=== PATIENT | male | born 1950 | race Caucasian/White ===

== ENCOUNTER 2016-11-29 01:20 | Inpatient (IN) | payer MEDICARE, OTHER ==
[~2016-11-29] VITALS: Ht 180.3 cm; Wt 75.9 kg
[2016-11-29 02:02] LABS: BASOPHILS 0.6 % (0-2); EOSINOPHILS 2.7 % (0-7); HEMATOCRIT 40.7 % (42.0-54.0); HEMOGLOBIN 14.5 g/dL (13.5-17.5); IMMATURE GRANULOCYTES 0.2 % (0-5); LYMPHOCYTES 24.4 % (15-50); MCH 36.2 pg (26.0-34.0); MCHC 35.6 g/dL (31.0-37.0); MCV 101.5 fL (80.0-100.0); MEAN PLATELET VOLUME 10.6 fL (7.4-10.4); MONOCYTES 9.5 % (2-11); NEUTROPHILS 62.6 % (40-80); RBC 4.01 10x6/uL (4.20-6.10); RDW 15.1 % (11.5-14.5); WBC 6.2 10x3/uL (4.8-10.8)
[2016-11-29 02:03] LABS: PLATELET COUNT 113 10x3/uL (130-400)
[2016-11-29 02:13] LABS: ALBUMIN 3.1 g/dL (3.4-5.0); ANION GAP 12.7 mmol/L (8-16); BILIRUBIN - TOTAL 2.52 mg/dL (0.2-1.3); CALCIUM 9.7 mg/dL (8.5-10.1); CARBON DIOXIDE 24.3 mmol/L (21.0-32.0); CREATININE - SERUM 1.4 mg/dL (0.6-1.3)
--- NOTE | 2016-11-29 07:35 | NUR ---
ASSESSMENT DONE. DENIES NEEDS.
[2016-11-29 08:00] VITALS: BP 156/90
[2016-11-29 12:00] VITALS: BP 155/102
[2016-11-29 13:28] VITALS: Ht 180.3 cm; Wt 75.9 kg
[2016-11-29 16:11] VITALS: BP 173/104
[2016-11-29 19:00] VITALS: BP 174/103
--- NOTE | 2016-11-29 21:00 | NUR ---
SPOUSE HERE AT BEDSIDE. MEDICATION RECONCILIATION UPDATED.
[2016-11-29] MEDS ORDERED: ENULOSE10 G/15 ML PO (21:48)
[2016-11-29] MEDS ORDERED: KLONOPIN0.5 MG PO (21:49)
[2016-11-29] MEDS ORDERED: PERCOCET 10/3251 TA1 PO (21:49)
[2016-11-29] MEDS ORDERED: ED-SPAZ0.125 MG PO (21:50)
[2016-11-29] MEDS ORDERED: LEVOTHYROXINE50 MCG PO (21:50)
[2016-11-30] VITALS: BP 158/95
--- NOTE | 2016-11-30 00:45 | NUR ---
POTASSIUM RESULTS 3.1 - KCL 40 MEQ PO GIVEN PER PROTOCOL. WILL MONITOR.
[2016-11-30 04:00] VITALS: BP 140/90
[2016-11-30 05:48] LABS: ANION GAP 15.8 mmol/L (8-16); CALCIUM 9.2 mg/dL (8.5-10.1); CARBON DIOXIDE 20.6 mmol/L (21.0-32.0); CREATININE - SERUM 1.2 mg/dL (0.6-1.3); POTASSIUM - SERUM 3.4 mmol/L (3.5-5.1)
--- NOTE | 2016-11-30 06:18 | NUR ---
K+ RESULTS 3.4. KCL 40 MEQ PO GIVEN PER ORDER. WILL ORDER A FOLLOW UP K+ LEVAL FOR 10:30 AM.
--- NOTE | 2016-11-30 07:06 | NUR ---
AM ROUNDS- PT IN BED, CONFUSED TO TIME AND SITUATION. RESP EVEN AND UNLABORED. RT HAND IV SL, NO S/S OF INFILTRATION. BED LOW AND WHEELS LOCKED, BEDSIDE REAILS X2. CALL LIGHT IN REACH, INSTRUCTED PT NOT TO GET OUT OF BED WITHOUT HELP. BED ALARM ON, NAD NOTED, WILL CONTINUE TO MONITOR.
--- NOTE | 2016-11-30 09:08 | NUR ---
AM MEDS GIVEN PT ASKING ABOUT OTHER HOME MEDS. INFORMED PT THAT I WOULD LET THE DOCTORS KNOW SO IT CAN BE ADDRESSED. PT IN BED, DENIES ANY OTHER NEEDS AT THIS TIME. CALL LIGHT IN REACH, NAD NOTED, WILL CONTINUE TO MONITOR.
[2016-11-30 09:48] VITALS: BP 191/93
[2016-11-30 11:58] LABS: APPEARANCE CLEAR (CLEAR); BACTERIA FEW /hpf (NONE SEEN); BILIRUBIN NEGATIVE (NEGATIVE); COLOR YELLOW (YELLOW); EPITHELIAL CELLS OCC /hpf (0-5); GLUCOSE NEGATIVE (NEGATIVE); KETONE NEGATIVE (NEGATIVE); LEUKOCYTE ESTERASE TRACE (NEGATIVE); NITRITE NEGATIVE (NEGATIVE); PROTEIN NEGATIVE (NEGATIVE); RED CELLS - URINE 0-5 /hpf (0-5); UROBILINOGEN NORMAL (NORMAL); WHITE CELLS - URINE 0-5 /hpf (0-5)
[2016-11-30 12:29] VITALS: BP 184/86
--- NOTE | 2016-11-30 14:15 | NUR ---
NOTIFIED DR. LINDSAY AND LEEANNA PANCHAL ABOUT AMMONIA LEVEL OF 55. LEEANNA PANCHAL STATED TO START PT ON HOME DOSE LACTULOSE, AND TO GIVE 30ML OF LACTULOSE RIGHT NOW ONE TIME DOSE.
[2016-11-30 15:11] VITALS: BP 174/78
--- NOTE | 2016-11-30 16:53 | NUR ---
PT UP AD SHEY TO BATHROOM. RESP EVEN AND NONLABORED. PT DENIES ANY NEEEDS AT THIS TIME. CALL LIGHT IN REACH, NAD NOTED, WILL CONTIUE TO MONITOR.
--- NOTE | 2016-11-30 18:05 | NUR ---
ADMINITERED PERCOCET FOR PAIN LEVEL OF 8/10. PT IN BED, DENIES ANY OTHER NEEDS AT THIS TIME. CALL LIGHT IN REACH, NAD NOTED, WILL CONTINUE TO MONITOR.
[2016-12-01] VITALS: BP 189/77
--- NOTE | 2016-12-01 07:17 | NUR ---
AM ROUNDS- PT IN BED, ASKED FOR A MARTINEZ QAWALANGIN SODA. WILL PROVIDED PT WITH REQEUST. RESP EVEN AND UNLABORED. LT HAND IV SL. BED LOW AND WHEELS LOCKED, BEDSIDE RAILS X2. CALL LIGHT IN REACH, NAD NOTED, WILL CONTINUE TO MONITOR.
[2016-12-01 08:00] VITALS: BP 178/91
--- NOTE | 2016-12-01 09:23 | NUR ---
PT C/O PAIN TO ABD, LEVEL 8/10, ADMINISTERD PERCOCET FOR PAIN. PT DENIES ANY OTHER NEEDS AT THIS TIME. CALL LIGHT IN REACH, NAD NOTED, WILL CONTINUE TO MONITOR.
--- NOTE | 2016-12-01 10:50 | NUR ---
PT GOT IN THE SHOWER. COMPLETE LINEN CHANGE PROVIDED AT THIS TIME. HELPED PT BACK TO BED AFTER SHOWER. PROVIDED PT WITH A LEMON KOTLIK SODA. PT DENIES ANY NEEDS AT THIS TIME. CALL LIGHT IN REACH, NAD NOTED, WILL CONTINUE TO MONITOR.
[2016-12-01 12:00] VITALS: BP 144/93
[2016-12-01 13:30] LABS: BASOPHILS 0.2 % (0-2); EOSINOPHILS 0.2 % (0-7); IMMATURE GRANULOCYTES 0.3 % (0-5); LYMPHOCYTES 14.5 % (15-50); MCH 36.6 pg (26.0-34.0); MCHC 35.6 g/dL (31.0-37.0); MEAN PLATELET VOLUME 11.3 fL (7.4-10.4); MONOCYTES 9.5 % (2-11); NEUTROPHILS 75.3 % (40-80); PLATELET COUNT 112 10x3/uL (130-400); RBC 4.37 10x6/uL (4.20-6.10); RDW 15.2 % (11.5-14.5); WBC 10.3 10x3/uL (4.8-10.8)
[2016-12-01 13:45] LABS: BILIRUBIN - TOTAL 2.63 mg/dL (0.2-1.3); CALCIUM 9.4 mg/dL (8.5-10.1); CREATININE - SERUM 1.5 mg/dL (0.6-1.3); PROTEIN - SERUM 7.3 g/dL (6.4-8.2)
--- NOTE | 2016-12-01 15:05 | NUR ---
ADMINISTERED LACTULOSE ORDERED. PT IN BED, DENIES ANY NEEDS AT THIS TIME. CALL LIGHT IN REACH, NAD NOTED, WILL CONTINUE TO MONITOR.
--- NOTE | 2016-12-01 15:52 | NUR ---
40MEQ OF K GIVEN FOR LOW K OF 3.0 WILL PUT ORDER FOR K BLOOD DRAW AT 1999. PT DENIES ANY NEEDS AT THIS TIME. CALL LIGHT IN REACH, NAD NOTED, WILL CONTINUE TO MONITOR.
[2016-12-01 16:00] VITALS: BP 150/84
--- NOTE | 2016-12-01 18:10 | NUR ---
PT IN BED, DENIES ANY NEEDS AT THIS TIME. PT STATED THAT HE THREW UP THREE TIMES TODAY, PT DID NOT NOTIFY ME WHEN HE WAS THROWING UP. INFORMED PT THAT IF HE THROWS UP AGAIN TO NOTIFY THE NURSE. CALL LIGHT IN REACH, NAD NOTED, WILL CONTINUE TO MONITOR.
--- NOTE | 2016-12-01 18:59 | NUR ---
ORDERS RECEIVED FROM DR. PARKS FOR WINN PLACEMENT, NG TUBE PLACEMENT, AND 1000CC BOLUS OF NS. NG TUBE TO INTERMINENT CONT SUCTION. DR. PARKS WILL BE HERE TO SEE PT LATER [place].
--- NOTE | 2016-12-01 19:00 | NUR ---
RECEIVED REPORT AND ASSUMED PT CARE FROM DAY SHIFT NURSE @ THIS TIME.
[2016-12-01 20:00] VITALS: BP 168/93
--- NOTE | 2016-12-01 20:52 | NUR ---
14 FR SALEN SUMP NGT PLACED TO RIGHT NARE. VERIFIED BY AUSCULTATION AND ASPIRATION OF LIGHT BROWN STOMACH CONTENTS. XRAY ORDERED TO VERIFY PLACEMENT OF NGT TUBE. 16 FR WINN CATH PLACED, 300 CC CLEAR TRINIDAD URINE RETURNED. PT TOLERATED FAIR. NS 1 L BOLUS ALSO STARTED TO LEFT AC IV SITE ORDERED. WILL MONITOR.
[2016-12-02] VITALS: BP 156/90
--- NOTE | 2016-12-02 | NUR ---
NO CHANGES IN ASSESSMENT, NGT TO RT NARE CONTINUES TO BE CONNECTED TO LIWS, MINIMAL AMOUNT BROWN DRAINAGE NOTED. PT STATES HIS STOMACH IS FEELING BETTER. LEMON GLYCERIN SWABS PLACED AT THE THE BEDSIDE. ORAL CARE PROVIDED. PLACEMENT VERIFIED AGAIN BY AUSCULTATION. WINN CONT TO PUT OUT TRINIDAD CLEAR URINE. NO OTHER NEEDS VOICED. WILL CONT TO MONITOR.
[2016-12-02 04:00] VITALS: BP 158/80
[2016-12-02 05:03] LABS: BASOPHILS 0.2 % (0-2); EOSINOPHILS 0.7 % (0-7); HEMATOCRIT 44.1 % (42.0-54.0); HEMOGLOBIN 15.5 g/dL (13.5-17.5); IMMATURE GRANULOCYTES 0.3 % (0-5); LYMPHOCYTES 20.1 % (15-50); MCHC 35.1 g/dL (31.0-37.0); MCV 102.3 fL (80.0-100.0); MEAN PLATELET VOLUME 11.3 fL (7.4-10.4); MONOCYTES 10.2 % (2-11); NEUTROPHILS 68.5 % (40-80); PLATELET COUNT 132 10x3/uL (130-400); RBC 4.31 10x6/uL (4.20-6.10); RDW 15.2 % (11.5-14.5); WBC 12.4 10x3/uL (4.8-10.8)
--- NOTE | 2016-12-02 05:06 | NUR ---
PT PULLS NGT OUT WHILE ASLEEP. 14 FR SALEM SUMP NGT TO RIGHT NARE PLACED. VERIFIED BY AUSCULTATION AND ASPIRATION. CONNECTED TO LIWS. PT TOLERATED FAIR. DRAINAGE NOW GREEN. PT STATES ABD HURTING AND FEELING BETTER ONCE TUBE BACK IN PLACE.
[2016-12-02 05:22] LABS: ALBUMIN 2.9 g/dL (3.4-5.0); ANION GAP 14.6 mmol/L (8-16); BILIRUBIN - DIRECT 0.75 mg/dL (0.00-0.30); BILIRUBIN - TOTAL 3.03 mg/dL (0.2-1.3); CALCIUM 8.7 mg/dL (8.5-10.1); CARBON DIOXIDE 21.7 mmol/L (21.0-32.0); CREATININE - SERUM 1.2 mg/dL (0.6-1.3); POTASSIUM - SERUM 3.3 mmol/L (3.5-5.1); PROTEIN - SERUM 7.1 g/dL (6.4-8.2)
--- NOTE | 2016-12-02 07:30 | NUR ---
RECEIVED PT IN BED EYES CLOSED RESP UNLABORED NG PATENT TO LOW WALL INTERMITENT SUCTION NAD NOTED
[2016-12-02 08:00] VITALS: BP 154/87
--- NOTE | 2016-12-02 12:57 | NUR ---
Nutrition Follow Up: Chart reviewed. Pt is now NPO with NGT to LIS. No new wt to assess. +BM 12/01/16. Labs and meds reviewed. Rec advancing diet when medically feasible. RD following.
--- NOTE | 2016-12-02 13:45 | CN ---
PATIENT NAME:REEMA ADAM MEDICAL RECORD: [id number] : 46 LOCATION:D. D.2115 ADMIT DATE: 11/30/16 ACCOUNT: [id number] CONSULTING PHYSICIAN: KARINE HEWITT MD REFERRING PHYSICIAN: RENA LINDSAY MD DATE OF CONSULTATION: 11/30/2016 IDENTIFYING DATA: The patient is 66 years old and admitted to the hospital secondary to an elevated ammonia. CHIEF COMPLAINT: Confusion. HISTORY OF PRESENT ILLNESS: The patient was seen today. He was not evaluated. He and his say they do not need a psychiatrist. They furthermore say they are not happy with the care here that he is not getting the medicines that he needs. They want to be discharged. They say that there is no need for me to see him. They did not know a psychiatrist was coming to see him and they are unhappy. ASSESSMENT: Probable delirium secondary to elevated ammonia. PLAN: Please call if I can be of further assistance. TRANSINT:[id number] Voice Confirmation ID: [id number] DOCUMENT ID: [id number] KARINE HEWITT MD at 1345 CC: [id number] DICTATION DATE: 11/30/16 1324 SAWMILL SUPERVISOR: 11/30/16 2036 ADM IN [facility] [address] [place] [address]
[2016-12-02 16:00] VITALS: BP 177/94
[2016-12-02 19:00] VITALS: BP 168/93
--- NOTE | 2016-12-02 19:30 | NUR ---
RESUMED CARE OF PT, LYING IN BED RESPIRATIONS EVEN AND UNLABORED ON ROOM AIR. NG TUBE TO RIGHT NARE LIS EMPTYING YELLOW GREEN BILE. LEFT AC INFUSING NS @ KVO. NO NEEDS VOICED AT THIS TIME, CALL LIGHT IN REACH. WILL CONTINUE TO MONITOR. SEE NURSE ASSESSMENT.
--- NOTE | 2016-12-02 19:47 | NUR ---
GONE FOR CT
--- NOTE | 2016-12-02 20:15 | NUR ---
NG TUBE REMOVED BY PT, REINSERTED TO RIGHT NARE. PLACEMENT CONFIRMED BY AUSCULTATION. HOOKED TO LIS. NO BILE REMOVING AT THIS TIME. WILL CONTINUE TO MONITOR. CALL LIGHT IN REACH.
[2016-12-03] VITALS: BP 163/86
--- NOTE | 2016-12-03 02:29 | NUR ---
LYING IN BED, CALL LIGHT IN REACH. WILL CONTINUE WITH PLAN OF CARE
[2016-12-03 04:00] VITALS: BP 130/76
[2016-12-03 05:48] LABS: BASOPHILS 0.6 % (0-2); EOSINOPHILS 2.1 % (0-7); HEMATOCRIT 43.9 % (42.0-54.0); HEMOGLOBIN 15.3 g/dL (13.5-17.5); IMMATURE GRANULOCYTES 0.2 % (0-5); LYMPHOCYTES 21.8 % (15-50); MCH 36.1 pg (26.0-34.0); MCHC 34.9 g/dL (31.0-37.0); MCV 103.5 fL (80.0-100.0); MEAN PLATELET VOLUME 11.9 fL (7.4-10.4); MONOCYTES 10.8 % (2-11); NEUTROPHILS 64.5 % (40-80); PLATELET COUNT 113 10x3/uL (130-400); RBC 4.24 10x6/uL (4.20-6.10); RDW 15.2 % (11.5-14.5)
[2016-12-03 05:59] LABS: WBC 8.9 10x3/uL (4.8-10.8)
[2016-12-03 06:13] LABS: ALBUMIN 2.8 g/dL (3.4-5.0); ANION GAP 15.3 mmol/L (8-16); BILIRUBIN - TOTAL 3.1 mg/dL (0.2-1.3); CALCIUM 8.7 mg/dL (8.5-10.1); CARBON DIOXIDE 22.4 mmol/L (21.0-32.0); CREATININE - SERUM 1.2 mg/dL (0.6-1.3); POTASSIUM - SERUM 3.7 mmol/L (3.5-5.1); PROTEIN - SERUM 6.9 g/dL (6.4-8.2)
--- NOTE | 2016-12-03 07:15 | NUR ---
RECEIVED PT IN BED EYES CLOSED RESP UNLABORED NG TUBE PATENT TO RT NARE TO LOW INTERMITENT SUCTION SCANT GREE DRAINAGE NOTED NAD NOTED
[2016-12-03 08:25] VITALS: BP 151/87
[2016-12-03 12:12] VITALS: BP 154/82
[2016-12-03 16:24] VITALS: BP 167/100
[2016-12-03 20:00] VITALS: BP 135/84
--- NOTE | 2016-12-03 21:00 | NUR ---
PT RESTING IN BED. ALERT/ORIENTED. PIV TO LEFT A/C. BEDTIME MEDS GIVEN. LOVENOX ADMINISTERED. WINN PATENT TO BEDSIDE DRAIN BAG. PT REQUESTED PAIN MEDS FOR ABDOMINAL PAIN 10/24. MEDICATED WITH DILAUDID 1MG SIVP. CALL LIGHT IN REACH. CPOC.
--- NOTE | 2016-12-03 21:31 | NUR ---
DR NORMAN ON UNIT SEEING PATIENT.
[2016-12-04] VITALS: BP 131/74
[2016-12-04 04:00] VITALS: BP 138/79
[2016-12-04 05:52] LABS: BASOPHILS 0.4 % (0-2); HEMATOCRIT 43.7 % (42.0-54.0); HEMOGLOBIN 15.5 g/dL (13.5-17.5); IMMATURE GRANULOCYTES 0.3 % (0-5); LYMPHOCYTES 23.3 % (15-50); MCH 36.2 pg (26.0-34.0); MCHC 35.5 g/dL (31.0-37.0); MCV 102.1 fL (80.0-100.0); MEAN PLATELET VOLUME 12.2 fL (7.4-10.4); MONOCYTES 11.2 % (2-11); NEUTROPHILS 60.8 % (40-80); PLATELET COUNT 123 10x3/uL (130-400); RBC 4.28 10x6/uL (4.20-6.10); WBC 9.5 10x3/uL (4.8-10.8)
[2016-12-04 06:15] LABS: INR 1.56 (0.85-1.17); PROTIME 18.6 SECONDS (11.6-15.0)
[2016-12-04 06:22] LABS: ALBUMIN 2.7 g/dL (3.4-5.0); ANION GAP 34.7 mmol/L (8-16); BILIRUBIN - TOTAL 2.58 mg/dL (0.2-1.3); CALCIUM 8.6 mg/dL (8.5-10.1); CREATININE - SERUM 1.2 mg/dL (0.6-1.3); POTASSIUM - SERUM 3.2 mmol/L (3.5-5.1); PROTEIN - SERUM 6.7 g/dL (6.4-8.2)
[2016-12-04 06:31] LABS: CARBON DIOXIDE 21.1 mmol/L (21.0-32.0)
[2016-12-04 09:19] VITALS: BP 155/95
--- NOTE | 2016-12-04 10:49 | NUR ---
RESTS WITH EYES CLOSED. CALL LIGHT IN REACH. WILL CONT. PLAN OF CARE.
[2016-12-04 12:09] VITALS: BP 151/90
--- NOTE | 2016-12-04 13:10 | NUR ---
WINN CATH DCD OF 450CC URINE OP AND 10CC BULB. WILL MONITOR VOID.
[2016-12-04 14:54] VITALS: BP 126/70
[2016-12-04 19:00] VITALS: BP 164/87
--- NOTE | 2016-12-04 19:17 | NUR ---
RESUMED CARE OF PT, LYING IN BED RESPIRATIONS EVEN AND UNLABORED ON ROOM AIR. LEFT AC SALINE LOCKED. ON PHONE, NO NEEDS NOTED AT THIS TIME, CALL LIGHT IN REACH. WILL CONTINUE TO MONITOR. SEE NURSE ASSESSMENT.
--- NOTE | 2016-12-04 23:52 | NUR ---
IV PULLED OUT BY PT, 20 GAUGE X 2 STICKS TO LEFT UPPER ARM. OLD IV REMOVED WITH TIP INTACT.
[2016-12-05] VITALS: BP 108/72
--- NOTE | 2016-12-05 02:42 | NUR ---
CALL LIGHT IN REACH, WILL CONTINUE WITH PLAN OF CARE.
[2016-12-05 04:00] VITALS: BP 132/78
[2016-12-05 05:23] LABS: BASOPHILS 0.2 % (0-2); EOSINOPHILS 3.5 % (0-7); HEMATOCRIT 40.9 % (42.0-54.0); HEMOGLOBIN 14.6 g/dL (13.5-17.5); IMMATURE GRANULOCYTES 0.2 % (0-5); LYMPHOCYTES 22.6 % (15-50); MCH 36.5 pg (26.0-34.0); MCHC 35.7 g/dL (31.0-37.0); MCV 102.3 fL (80.0-100.0); MEAN PLATELET VOLUME 11.9 fL (7.4-10.4); MONOCYTES 10.3 % (2-11); NEUTROPHILS 63.2 % (40-80); PLATELET COUNT 110 10x3/uL (130-400); RDW 14.9 % (11.5-14.5); WBC 9.5 10x3/uL (4.8-10.8)
[2016-12-05 05:40] LABS: ALBUMIN 2.5 g/dL (3.4-5.0); BILIRUBIN - TOTAL 2.31 mg/dL (0.2-1.3); CALCIUM 8.2 mg/dL (8.5-10.1); CARBON DIOXIDE 20.7 mmol/L (21.0-32.0); CREATININE - SERUM 1.2 mg/dL (0.6-1.3); POTASSIUM - SERUM 3.7 mmol/L (3.5-5.1); PROTEIN - SERUM 6.3 g/dL (6.4-8.2)
[2016-12-05 08:29] VITALS: BP 124/72
--- NOTE | 2016-12-05 09:29 | NUR ---
RESTS WITH EYES CLOSED. NO S/S PAIN NOTED AT THIS TIME. WILL CONT. PLAN OF CARE.
[2016-12-05 10:19] LABS: ALPHA FETOPROTEIN -(TUMOR MRK) 5.9 ng/mL (0.0-8.3)
[2016-12-05 12:41] VITALS: BP 127/85
--- NOTE | 2016-12-05 13:25 | NUR ---
Nutrition Follow Up: Pt is eating 31% meal avg on a full liquid diet. Per WET WASHER MACHINE note pt with 3-4 BM per day. Wt loss noted. Labs reviewed. Meds noted including Lactulose, Flagyl. Rec continue advancing diet as tolerated. Will provide selective menus and honor food preferences. RD following.
[2016-12-05 16:21] VITALS: BP 115/76
[2016-12-05 20:40] VITALS: BP 144/88
--- NOTE | 2016-12-06 00:08 | NUR ---
LYING IN BED WITH EYES CLOSED, CALL LIGHT IN REACH. WILL CONTINUE TO MONITOR.
[2016-12-06 00:52] VITALS: BP 148/90
[2016-12-06 04:45] VITALS: BP 120/73
[2016-12-06 05:33] LABS: BASOPHILS 0.5 % (0-2); EOSINOPHILS 6.6 % (0-7); HEMATOCRIT 40.8 % (42.0-54.0); HEMOGLOBIN 14.7 g/dL (13.5-17.5); IMMATURE GRANULOCYTES 0.2 % (0-5); LYMPHOCYTES 28.2 % (15-50); MCH 36.6 pg (26.0-34.0); MCV 101.5 fL (80.0-100.0); MEAN PLATELET VOLUME 11.1 fL (7.4-10.4); MONOCYTES 10.7 % (2-11); NEUTROPHILS 53.8 % (40-80); PLATELET COUNT 100 10x3/uL (130-400); RBC 4.02 10x6/uL (4.20-6.10); RDW 14.9 % (11.5-14.5)
[2016-12-06 05:36] LABS: INR 1.76 (0.85-1.17); PROTIME 20.5 SECONDS (11.6-15.0); WBC 6.2 10x3/uL (4.8-10.8)
[2016-12-06 05:53] LABS: ALBUMIN 2.5 g/dL (3.4-5.0); ANION GAP 13.1 mmol/L (8-16); BILIRUBIN - TOTAL 1.7 mg/dL (0.2-1.3); CALCIUM 8.3 mg/dL (8.5-10.1); CARBON DIOXIDE 19.1 mmol/L (21.0-32.0); CREATININE - SERUM 1.1 mg/dL (0.6-1.3); POTASSIUM - SERUM 3.2 mmol/L (3.5-5.1); PROTEIN - SERUM 5.9 g/dL (6.4-8.2)
--- NOTE | 2016-12-06 06:20 | NUR ---
NO CHANGES FROM PREVIOUS ASSESSMENT, POTASSIUM TREATED PER PROTOCOL.
[2016-12-06 08:00] VITALS: BP 127/78
[2016-12-06 12:00] VITALS: BP 127/80
[2016-12-06 16:00] VITALS: BP 147/79
[2016-12-06 20:00] VITALS: BP 132/85
--- NOTE | 2016-12-06 22:38 | NUR ---
PT RESTING WELL WITHOUT C/O OR DISTRESS NOTED. NO NEEDS VOICED. CALL LIGHT WITHIN REACH. WILL CONT TO MONITOR.
--- NOTE | 2016-12-07 02:04 | NUR ---
PT C/O GENERALIZED ACHINESS AND PAIN, RATES @ 6/10 ON PAIN SCALE. PERCOCET 10/325 MG 1 PO GIVEN. WILL CONT TO MONITOR.
[2016-12-07 04:00] VITALS: BP 109/73
[2016-12-07 05:50] LABS: INR 3.73 (0.85-1.17); PROTIME 37.4 SECONDS (11.6-15.0)
--- NOTE | 2016-12-07 07:30 | NUR ---
UP AMBULATING IN ROOM NAD NOTED
[2016-12-07 08:21] VITALS: BP 127/88
--- NOTE | 2016-12-07 09:49 | NUR ---
LOVENOX 80MG NOT GIVEN INR 3.73
[2016-12-07 12:15] LABS: BASOPHILS 0.7 % (0-2); EOSINOPHILS 7.3 % (0-7); HEMATOCRIT 41.2 % (42.0-54.0); HEMOGLOBIN 14.8 g/dL (13.5-17.5); IMMATURE GRANULOCYTES 0.2 % (0-5); MCH 36.5 pg (26.0-34.0); MCHC 35.9 g/dL (31.0-37.0); MCV 101.5 fL (80.0-100.0); MEAN PLATELET VOLUME 11.7 fL (7.4-10.4); MONOCYTES 11.9 % (2-11); NEUTROPHILS 48.9 % (40-80); PLATELET COUNT 107 10x3/uL (130-400); RBC 4.06 10x6/uL (4.20-6.10); WBC 5.6 10x3/uL (4.8-10.8)
[2016-12-07 12:27] LABS: ALBUMIN 2.6 g/dL (3.4-5.0); BILIRUBIN - TOTAL 1.05 mg/dL (0.2-1.3); CALCIUM 8.2 mg/dL (8.5-10.1); CARBON DIOXIDE 22.4 mmol/L (21.0-32.0); CREATININE - SERUM 1.1 mg/dL (0.6-1.3); PROTEIN - SERUM 6.7 g/dL (6.4-8.2)
[2016-12-07 12:32] LABS: ANION GAP 10.8 mmol/L (8-16); POTASSIUM - SERUM 4.2 mmol/L (3.5-5.1)
[2016-12-07] MEDS ORDERED: OMEPRAZOLE40 MG PO (12:53)
[2016-12-07] MEDS ORDERED: XIFAXAN550 MG PO (12:53)
[2016-12-07] MEDS ORDERED: FLAGYL500 MG PO (12:57)
[2016-12-07] MEDS ORDERED: COUMADIN2.5 MG PO (12:57)
--- NOTE | 2016-12-07 14:40 | NUR ---
REVIEWED DISCHARGE INSTRUCTIONS WITH PT AND BOTH STATE UNDERSTANDING COPY GIVEN DCD SALINE LOCK TO LAC WITH IV CATHETER INTACT SITE FREE OF REDNESS OR EDEMA PT DISCHARGED HOME LEFT UNIT VIA W/C IN STABLE CONDITION WITH ALL PERSONAL BELONGINGS
== END 2016-12-07 14:40 | disposition home or self-care (01) | DRG 441 ==
LOC: D.ER 01:20 → D.M2 02:49 → OBSVTIME 02:49 → D.M2 02:49 → D.SDCHOLD 16:00 → D.M2 16:03 → D.SDCHOLD 16:40 → D.M2 16:42
PROVIDERS: Emergency Medicine; Family Medicine; Internal Medicine Gastroenterology; ADMIT Family Medicine Adult Medicine
PROC: 0T9B70Z Drainage of Bladder with Drainage Device, Via Natural or Artificial Opening (ICD-10-PCS; principal; 2016-12-01)
PROC: 0D9670Z Drainage of Stomach with Drainage Device, Via Natural or Artificial Opening (ICD-10-PCS; 2016-12-01)
DX: K72.90 Hepatic failure, unspecified without coma (principal); I81 Portal vein thrombosis; K55.059 Acute (reversible) ischemia of intestine, part and extent unspecified; N17.9 Acute kidney failure, unspecified; F05 Delirium due to known physiological condition; E72.20 Disorder of urea cycle metabolism, unspecified; K76.6 Portal hypertension; I85.00 Esophageal varices without bleeding; K56.60 Unspecified intestinal obstruction; K70.30 Alcoholic cirrhosis of liver without ascites; K57.90 Diverticulosis of intestine, part unspecified, without perforation or abscess without bleeding; K80.80 Other cholelithiasis without obstruction; Z79.01 Long term (current) use of anticoagulants; I86.8 Varicose veins of other specified sites; Z87.891 Personal history of nicotine dependence

== ENCOUNTER 2016-12-09 15:14 | Emergency (ER) | payer MEDICARE, OTHER ==
[2016-11-29 13:28] VITALS: BMI 25.1
[~2016-12-09 15:14] MED LIST: COUMADIN2.5 MG PO; ED-SPAZ0.125 MG PO; ENULOSE10 G/15 ML PO; FLAGYL500 MG PO; KLONOPIN0.5 MG PO; LEVOTHYROXINE50 MCG PO; OMEPRAZOLE40 MG PO; PERCOCET 10/3251 TA1 PO; XIFAXAN550 MG PO
[2016-12-09 16:07] LABS: BASOPHILS 1.3 % (0-2); EOSINOPHILS 5.9 % (0-7); IMMATURE GRANULOCYTES 0.1 % (0-5); LYMPHOCYTES 30.3 % (15-50); MCH 36.8 pg (26.0-34.0); MCHC 34.9 g/dL (31.0-37.0); MCV 105.4 fL (80.0-100.0); MEAN PLATELET VOLUME 12.2 fL (7.4-10.4); MONOCYTES 10.6 % (2-11); NEUTROPHILS 51.8 % (40-80); PLATELET COUNT 111 10x3/uL (130-400); RBC 4.08 10x6/uL (4.20-6.10); RDW 15.3 % (11.5-14.5); WBC 7.1 10x3/uL (4.8-10.8)
[2016-12-09 16:34] LABS: ANION GAP 14.4 mmol/L (8-16); BILIRUBIN - TOTAL 1.04 mg/dL (0.2-1.3); CALCIUM 8.3 mg/dL (8.5-10.1); CARBON DIOXIDE 20.6 mmol/L (21.0-32.0); CREATININE - SERUM 1.3 mg/dL (0.6-1.3); PROTEIN - SERUM 6.8 g/dL (6.4-8.2)
[2016-12-09 16:38] LABS: APTT 56.3 SECONDS (22.8-39.4)
[2016-12-09 16:57] LABS: APPEARANCE CLEAR (CLEAR); BILIRUBIN NEGATIVE (NEGATIVE); COLOR DK YELLOW (YELLOW); GLUCOSE NEGATIVE (NEGATIVE); KETONE NEGATIVE (NEGATIVE); LEUKOCYTE ESTERASE TRACE (NEGATIVE); NITRITE NEGATIVE (NEGATIVE); PROTEIN NEGATIVE (NEGATIVE); UROBILINOGEN NORMAL (NORMAL)
[2016-12-09 16:59] LABS: BACTERIA FEW /hpf (NONE SEEN); WHITE CELLS - URINE OCC /hpf (0-5)
[2016-12-09 17:01] LABS: PROTIME 58.6 SECONDS (11.6-15.0)
[2016-12-09 17:02] LABS: INR 6.54 (0.85-1.17)
== END 2016-12-09 19:00 | disposition home or self-care (01) ==
LOC: D.ER 15:14
PROVIDERS: Emergency Medicine
DX: Z86.718 Personal history of other venous thrombosis and embolism (principal); Z79.01 Long term (current) use of anticoagulants; K74.60 Unspecified cirrhosis of liver; J84.10 Pulmonary fibrosis, unspecified

== ENCOUNTER → 2016-12-30 12:46 | Outpatient (CLI) | payer MEDICARE, OTHER ==
[2016-11-29 13:28] VITALS: BMI 25.1
== END | disposition home or self-care (01) ==
LOC: D.LABREF 12:46
DX: K74.60 Unspecified cirrhosis of liver (principal); I99.8 Other disorder of circulatory system

== ENCOUNTER → 2017-01-16 08:08 | Outpatient (CLI) | payer MEDICARE, OTHER ==
[2016-11-29 13:28] VITALS: BMI 25.1
[2017-01-16 08:40] LABS: BASOPHILS 0.7 % (0-2); EOSINOPHILS 6.5 % (0-7); HEMATOCRIT 42.3 % (42.0-54.0); HEMOGLOBIN 14.8 g/dL (13.5-17.5); IMMATURE GRANULOCYTES 0.1 % (0-5); LYMPHOCYTES 25.7 % (15-50); MCH 35.4 pg (26.0-34.0); MCV 101.2 fL (80.0-100.0); MEAN PLATELET VOLUME 10.8 fL (7.4-10.4); MONOCYTES 7.6 % (2-11); NEUTROPHILS 59.4 % (40-80); RBC 4.18 10x6/uL (4.20-6.10); RDW 13.8 % (11.5-14.5); WBC 8.3 10x3/uL (4.8-10.8)
[2017-01-16 08:48] LABS: PLATELET COUNT 136 10x3/uL (130-400)
[2017-01-16 09:04] LABS: ALBUMIN 2.8 g/dL (3.4-5.0); BILIRUBIN - DIRECT 0.56 mg/dL (0.00-0.30); BILIRUBIN - TOTAL 1.56 mg/dL (0.2-1.3); PROTEIN - SERUM 7.2 g/dL (6.4-8.2)
== END | disposition home or self-care (01) ==
LOC: D.US 08:08
PROVIDERS: Internal Medicine Gastroenterology
DX: K74.60 Unspecified cirrhosis of liver (principal); I85.00 Esophageal varices without bleeding; K72.90 Hepatic failure, unspecified without coma

== ENCOUNTER → 2017-01-17 08:20 | Outpatient (CLI) | payer MEDICARE, OTHER ==
[2016-11-29 13:28] VITALS: BMI 25.1
== END | disposition home or self-care (01) ==
LOC: D.US 01-16 08:30
DX: K74.60 Unspecified cirrhosis of liver (principal); I85.00 Esophageal varices without bleeding; K72.90 Hepatic failure, unspecified without coma

== ENCOUNTER → 2017-04-22 08:35 | Outpatient (CLI) | payer MEDICARE, OTHER ==
[2016-11-29 13:28] VITALS: BMI 25.1
[2017-04-22 09:57] LABS: BASOPHILS 0.8 % (0-2); EOSINOPHILS 6.3 % (0-7); HEMATOCRIT 43.8 % (42.0-54.0); HEMOGLOBIN 15.1 g/dL (13.5-17.5); IMMATURE GRANULOCYTES 0.1 % (0-5); LYMPHOCYTES 27.8 % (15-50); MCH 35.4 pg (26.0-34.0); MCHC 34.5 g/dL (31.0-37.0); MCV 102.8 fL (80.0-100.0); MEAN PLATELET VOLUME 11.6 fL (7.4-10.4); MONOCYTES 10.5 % (2-11); NEUTROPHILS 54.5 % (40-80); RBC 4.26 10x6/uL (4.20-6.10); RDW 14.8 % (11.5-14.5); WBC 7.1 10x3/uL (4.8-10.8)
[2017-04-22 10:02] LABS: PLATELET COUNT 106 10x3/uL (130-400)
[2017-04-22 10:15] LABS: ALBUMIN 3.1 g/dL (3.4-5.0); BILIRUBIN - DIRECT 0.71 mg/dL (0.00-0.30); BILIRUBIN - INDIRECT 1.34 mg/dL (0.00-1.00); BILIRUBIN - TOTAL 2.05 mg/dL (0.2-1.3); PROTEIN - SERUM 7.7 g/dL (6.4-8.2)
== END | disposition home or self-care (01) ==
LOC: D.US 08:35
PROVIDERS: Internal Medicine Gastroenterology
DX: K74.69 Other cirrhosis of liver (principal); K72.90 Hepatic failure, unspecified without coma

== ENCOUNTER → 2017-05-12 15:22 | Outpatient (CLI) | payer MEDICARE, OTHER ==
[2016-11-29 13:28] VITALS: BMI 25.1
== END | disposition home or self-care (01) ==
LOC: D.CT 15:22
DX: I81 Portal vein thrombosis (principal); K74.60 Unspecified cirrhosis of liver

== ENCOUNTER 2017-07-04 20:12 | Inpatient (IN) | payer MEDICARE, OTHER ==
[~2017-07-04] VITALS: Ht 180.3 cm; Wt 71.2 kg
[2017-07-04 21:51] LABS: ALBUMIN 2.7 g/dL (3.4-5.0); BILIRUBIN - TOTAL 2.1 mg/dL (0.2-1.3); CALCIUM 9.2 mg/dL (8.5-10.1); CARBON DIOXIDE 20.2 mmol/L (21.0-32.0); CREATININE - SERUM 1.2 mg/dL (0.6-1.3); POTASSIUM - SERUM 4.2 mmol/L (3.5-5.1); PROTEIN - SERUM 7.5 g/dL (6.4-8.2)
[2017-07-04 22:10] LABS: BASOPHILS 0.8 % (0-2); EOSINOPHILS 1.8 % (0-7); HEMATOCRIT 40.7 % (42.0-54.0); HEMOGLOBIN 14.4 g/dL (13.5-17.5); IMMATURE GRANULOCYTES 0.2 % (0-5); LYMPHOCYTES 18.8 % (15-50); MCH 35.4 pg (26.0-34.0); MCHC 35.4 g/dL (31.0-37.0); MEAN PLATELET VOLUME 11.4 fL (7.4-10.4); MONOCYTES 10.6 % (2-11); NEUTROPHILS 67.8 % (40-80); PLATELET COUNT 104 10x3/uL (130-400); RBC 4.07 10x6/uL (4.20-6.10); RDW 14.9 % (11.5-14.5); WBC 6.6 10x3/uL (4.8-10.8)
[2017-07-04 22:59] LABS: APPEARANCE CLEAR (CLEAR); BILIRUBIN NEGATIVE (NEGATIVE); COLOR YELLOW (YELLOW); GLUCOSE NEGATIVE (NEGATIVE); KETONE NEGATIVE (NEGATIVE); NITRITE NEGATIVE (NEGATIVE); PROTEIN NEGATIVE (NEGATIVE); SPECIFIC GRAVITY 1.015 (1.005-1.020); UROBILINOGEN NORMAL (NORMAL)
[2017-07-05] VITALS (7 sets, daily range): BP systolic 119–149; BP diastolic 72–91; BMI 23.7
[2017-07-05 05:39] LABS: ALBUMIN 2.5 g/dL (3.4-5.0); ANION GAP 12.5 mmol/L (8-16); BILIRUBIN - TOTAL 2.31 mg/dL (0.2-1.3); CALCIUM 8.8 mg/dL (8.5-10.1); CARBON DIOXIDE 24.3 mmol/L (21.0-32.0); CREATININE - SERUM 1.1 mg/dL (0.6-1.3); POTASSIUM - SERUM 3.8 mmol/L (3.5-5.1)
[2017-07-06 01:00] VITALS: BP 110/69
[2017-07-06 05:53] LABS: BASOPHILS 0.4 % (0-2); EOSINOPHILS 2.3 % (0-7); HEMATOCRIT 40.4 % (42.0-54.0); HEMOGLOBIN 14.5 g/dL (13.5-17.5); IMMATURE GRANULOCYTES 0.3 % (0-5); LYMPHOCYTES 18.7 % (15-50); MCH 35.2 pg (26.0-34.0); MCHC 35.9 g/dL (31.0-37.0); MCV 98.1 fL (80.0-100.0); MEAN PLATELET VOLUME 11.6 fL (7.4-10.4); MONOCYTES 10.3 % (2-11); PLATELET COUNT 132 10x3/uL (130-400); RBC 4.12 10x6/uL (4.20-6.10); RDW 15.2 % (11.5-14.5)
[2017-07-06 06:06] LABS: INR 1.53 (0.85-1.17); PROTIME 17.9 SECONDS (11.6-15.0)
[2017-07-06 06:10] LABS: ALBUMIN 2.5 g/dL (3.4-5.0); ANION GAP 12.8 mmol/L (8-16); BILIRUBIN - TOTAL 2.4 mg/dL (0.2-1.3); CALCIUM 8.7 mg/dL (8.5-10.1); CARBON DIOXIDE 19.9 mmol/L (21.0-32.0); CREATININE - SERUM 1.1 mg/dL (0.6-1.3); MAGNESIUM - SERUM 1.7 mg/dL (1.8-2.4); PHOSPHOROUS 2.9 mg/dL (2.5-4.9); POTASSIUM - SERUM 3.7 mmol/L (3.5-5.1); PROTEIN - SERUM 7.2 g/dL (6.4-8.2)
[2017-07-06 06:11] VITALS: BP 123/73
[2017-07-06 09:04] VITALS: BP 150/85
[2017-07-06 11:35] VITALS: BP 170/87
[2017-07-06 15:36] VITALS: BP 168/84
[2017-07-06 20:00] VITALS: BP 176/88
[2017-07-07] VITALS (7 sets, daily range): BP systolic 94–174; BP diastolic 61–97; Ht 180.3 cm; Wt 71.2 kg
[2017-07-07 04:45] LABS: BASOPHILS 0.1 % (0-2); EOSINOPHILS 0.5 % (0-7); HEMATOCRIT 42.1 % (42.0-54.0); HEMOGLOBIN 15.1 g/dL (13.5-17.5); IMMATURE GRANULOCYTES 0.1 % (0-5); LYMPHOCYTES 14.5 % (15-50); MCH 35.6 pg (26.0-34.0); MCHC 35.9 g/dL (31.0-37.0); MCV 99.3 fL (80.0-100.0); MEAN PLATELET VOLUME 11.9 fL (7.4-10.4); NEUTROPHILS 76.8 % (40-80); PLATELET COUNT 158 10x3/uL (130-400); RBC 4.24 10x6/uL (4.20-6.10); RDW 15.3 % (11.5-14.5)
[2017-07-07 04:48] LABS: WBC 9.8 10x3/uL (4.8-10.8)
[2017-07-07 04:57] LABS: INR 1.5 (0.85-1.17); PROTIME 17.6 SECONDS (11.6-15.0)
[2017-07-07 05:23] LABS: ALBUMIN 2.7 g/dL (3.4-5.0); BILIRUBIN - TOTAL 2.3 mg/dL (0.2-1.3); CALCIUM 8.6 mg/dL (8.5-10.1); CREATININE - SERUM 1.1 mg/dL (0.6-1.3); MAGNESIUM - SERUM 1.6 mg/dL (1.8-2.4); PHOSPHOROUS 3.1 mg/dL (2.5-4.9); PROTEIN - SERUM 7.5 g/dL (6.4-8.2)
[2017-07-07 06:05] LABS: ANION GAP 14.6 mmol/L (8-16); POTASSIUM - SERUM 3.6 mmol/L (3.5-5.1)
[2017-07-08] VITALS (7 sets, daily range): BP systolic 127–164; BP diastolic 69–93
[2017-07-08 05:45] LABS: BASOPHILS 0.4 % (0-2); EOSINOPHILS 1.4 % (0-7); HEMATOCRIT 39.2 % (42.0-54.0); HEMOGLOBIN 13.7 g/dL (13.5-17.5); IMMATURE GRANULOCYTES 0.1 % (0-5); LYMPHOCYTES 23.4 % (15-50); MCH 34.9 pg (26.0-34.0); MCHC 34.9 g/dL (31.0-37.0); MEAN PLATELET VOLUME 11.2 fL (7.4-10.4); MONOCYTES 9.8 % (2-11); NEUTROPHILS 64.9 % (40-80); PLATELET COUNT 155 10x3/uL (130-400); RBC 3.92 10x6/uL (4.20-6.10); WBC 8.1 10x3/uL (4.8-10.8)
[2017-07-08 05:52] LABS: INR 1.62 (0.85-1.17); PROTIME 18.7 SECONDS (11.6-15.0)
[2017-07-08 05:56] LABS: ALBUMIN 2.5 g/dL (3.4-5.0); ANION GAP 14.1 mmol/L (8-16); BILIRUBIN - TOTAL 2.24 mg/dL (0.2-1.3); CALCIUM 8.1 mg/dL (8.5-10.1); CARBON DIOXIDE 22.5 mmol/L (21.0-32.0); CREATININE - SERUM 1.2 mg/dL (0.6-1.3); MAGNESIUM - SERUM 1.6 mg/dL (1.8-2.4); PHOSPHOROUS 2.7 mg/dL (2.5-4.9); POTASSIUM - SERUM 3.6 mmol/L (3.5-5.1); PROTEIN - SERUM 7.1 g/dL (6.4-8.2)
[2017-07-09 00:28] VITALS: BP 132/90
[2017-07-09 05:41] VITALS: BP 135/79
[2017-07-09 05:49] LABS: BASOPHILS 0.8 % (0-2); EOSINOPHILS 3.7 % (0-7); HEMATOCRIT 38.4 % (42.0-54.0); HEMOGLOBIN 13.6 g/dL (13.5-17.5); IMMATURE GRANULOCYTES 0.1 % (0-5); LYMPHOCYTES 22.7 % (15-50); MCH 35.2 pg (26.0-34.0); MCHC 35.4 g/dL (31.0-37.0); MCV 99.5 fL (80.0-100.0); MEAN PLATELET VOLUME 11.4 fL (7.4-10.4); MONOCYTES 11.1 % (2-11); NEUTROPHILS 61.6 % (40-80); PLATELET COUNT 149 10x3/uL (130-400); RBC 3.86 10x6/uL (4.20-6.10); RDW 14.8 % (11.5-14.5); WBC 7.7 10x3/uL (4.8-10.8)
[2017-07-09 06:13] LABS: ALBUMIN 2.4 g/dL (3.4-5.0); ANION GAP 11.9 mmol/L (8-16); BILIRUBIN - TOTAL 2.8 mg/dL (0.2-1.3); CARBON DIOXIDE 21.7 mmol/L (21.0-32.0); CREATININE - SERUM 1.1 mg/dL (0.6-1.3); MAGNESIUM - SERUM 1.7 mg/dL (1.8-2.4); PHOSPHOROUS 3.3 mg/dL (2.5-4.9); POTASSIUM - SERUM 3.6 mmol/L (3.5-5.1)
[2017-07-09 06:26] LABS: INR 1.74 (0.85-1.17); PROTIME 19.8 SECONDS (11.6-15.0)
[2017-07-09 09:16] VITALS: BP 125/67
[2017-07-09 12:54] VITALS: BP 142/87
== END 2017-07-09 17:48 | DRG 443 ==
LOC: D.ER 20:12 → D.EDHOLD 22:11 → D.M2 22:11 → D.SDCHOLD 07-07 16:14 → D.M2 07-09 17:48
PROVIDERS: Family Medicine
DX: K72.90 Hepatic failure, unspecified without coma (principal); K70.30 Alcoholic cirrhosis of liver without ascites; W18.30XA Fall on same level, unspecified, initial encounter; K21.9 Gastro-esophageal reflux disease without esophagitis; Z87.891 Personal history of nicotine dependence

== ENCOUNTER 2017-07-09 19:36 | Inpatient (IN) | payer MEDICARE, OTHER ==
[~2017-07-09] VITALS: Ht 180.3 cm; Wt 68.0 kg
--- NOTE | ~2017-07-09 | RHP ---
PATIENT: REEMA ADAM MEDICAL RECORD: [id number] ACCOUNT: [id number] LOCATION:[facility]1117 : 46 ADMISSION DATE: 07/09/17 REHABILITATION HISTORY AND PHYSICAL EXAMINATION POST ADMISSION PHYSICIAN EXAMINATION DATE OF ADMISSION: 07/09/2017 ADMITTING DIAGNOSES: Hepatic encephalopathy HISTORY OF PRESENT ILLNESS: The patient is a 67-year-old gentleman admitted with hepatic encephalopathy secondary to elevated ammonia level and alcoholic cirrhosis. He is a patient who has got chronic liver disease, cirrhosis. He presents to the Emergency Room with increased confusion status post fall on 07/04/2017. He is independent without aid for all ADLs and mobility. He has O2, but does not use it all the time. He was lethargic, but arousable. The patient states he was crossing road to get to a bar, so he could play some pool, he does not drink. He states, he was quite confused by his own admission at the Emergency Room. He states his memory been giving him problems. He cannot remember his on address. In the ER, he had platelets of 104 and ammonia of 74. He is admitted for further evaluation. The bedside swallow eval showed he had oral phase dysphagia, but no signs of aspiration. He is cleared for regular diet with thin liquids. Dr. 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 After starting to treat with lactulose, his ammonia level was 30. He is alert and oriented with intermittent confusion. Currently, his white count is normal. He has walked 250 feet with PT, but dizzy and impulsiveness and tires easily. Plan is to continue his lactulose, correct his magnesium, monitor his ammonia. He would like to regain his strength, return back to his house, and get back to his prior level of functioning. He does have a . COMORBIDITIES: In this patient include altered mental status, hepatic encephalopathy, oral dysphagia, cirrhosis, acute abdominal pain, jaundice, portal vein thrombosis, acute renal failure, memory loss, recent falls, lethargy, generalized weakness, fatigue, anxiety, gastroesophageal reflux disease, and cataracts. PAST MEDICAL HISTORY: Includes history of cataracts, cirrhosis, acid reflux, anxiety. PAST SURGICAL HISTORY: Includes tonsillectomy and adenoidectomy. ALLERGIES: PENICILLIN. CURRENT MEDICATIONS: He is on electrolyte protocol at this time. He is on Synthroid 50 mcg daily, Percocet 10/325 one tab t.i.d. p.r.n., lactulose 60 cc t.i.d., Levsin 0.125 mg as needed for spasms, and Klonopin 0.5 mg b.i.d. HABITS: No current alcohol or tobacco use. FAMILY HISTORY: Noncontributory. SOCIAL HISTORY: The patient hopes to return back home and get back to his prior level of functioning. HISTORY AND PHYSICAL [id number] REEMA ADAM REVIEW OF SYSTEMS: GENERAL: He does complain of weakness and fatigue. HEENT: Denies cold, cough, or congestion. CARDIOVASCULAR: Denies chest pain. PHYSICAL EXAMINATION: VITAL SIGNS: Stable, afebrile. GENERAL: A thin gentleman, in no acute distress, alert upon exam. HEENT: Normocephalic and atraumatic. Mucosa moist. NECK: Supple. No lymphadenopathy. LUNGS: Clear at this time. HEART: Regular rate and rhythm. ABDOMEN: Somewhat protuberant and does have noted hepatosplenomegaly. EXTREMITIES: No clubbing, cyanosis, or edema. NEUROLOGIC: He is slow to mentate, but answers most questions appropriately. LABORATORY DATA: His white count 7.6, H&H of 14 and 39. His platelet count is noted to be 144. His sodium is 137, potassium 3.5, BUN and creatinine of 11 and 1.0, and blood sugar is noted to be 97. His ammonia level today is 36. ASSESSMENT: This is a 67-year-old gentleman admitted to the rehab with a working diagnosis of hepatic encephalopathy. The patient has potential to make improvement. We instituted the following multidisciplinary therapies including, but not limited to physical, occupational, respiratory, speech, nutritional services, prosthetics and orthotics. Given his complex medical condition and risks for more complications, rehabilitation services cannot be provided at a low level of care such as a skilled nurse facility. PLAN: 1. Admit to [facility] for intensive inpatient therapy to include the following disciplines: A. Physical therapy to improve gait, all transfer skills and bed mobility to a modified independent level. B. Occupational therapy to improve activities of daily living to a modified independent level. C. Case management to assist with discharge planning and placement options. D. Nutrition to assist with nutritional needs. E. Rehabilitation nursing to assist in monitoring the patient's underlying medical conditions and to assist with any type of bowel or bladder management. 2. The patient's current medication and medical care will be continued. Placed on standard fall precautions. 3. The patient's estimated length of stay is approximately 7-10 days. 4. Discuss this patient during care team staff meeting this week, and will continue to follow his ammonia and electrolytes and we will treat appropriately. TRANSINT:[id number] Voice Confirmation ID: [id number] DOCUMENT ID: [id number] JUAN DIEGO notes whether there has been none or any medical/functional change since admission: - No change since prescreen. JUAN DIEGO attests patient continues to be appropriate for IRF: - Continues to be appropriate. HISTORY AND PHYSICAL [id number] REEMA ADAM SCOTT MD at 1355 CC: [id number] DICTATION DATE: 07/10/17 0855 DEMOLITION ENGINEER: 07/10/17 1005 ADM IN [place] [id number] [place] [id number]
[2017-07-09 20:06] VITALS: BP 155/85
[2017-07-09 22:30] VITALS: BP 155/84; BMI 20.9
[2017-07-10 08:00] VITALS: BP 117/64
[2017-07-10 08:01] LABS: BASOPHILS 0.7 % (0-2); EOSINOPHILS 5.2 % (0-7); HEMATOCRIT 38.9 % (42.0-54.0); IMMATURE GRANULOCYTES 0.3 % (0-5); LYMPHOCYTES 19.4 % (15-50); MCH 35.3 pg (26.0-34.0); MEAN PLATELET VOLUME 10.9 fL (7.4-10.4); MONOCYTES 11.2 % (2-11); NEUTROPHILS 63.2 % (40-80); PLATELET COUNT 144 10x3/uL (130-400); RBC 3.97 10x6/uL (4.20-6.10); RDW 14.7 % (11.5-14.5); WBC 7.6 10x3/uL (4.8-10.8)
[2017-07-10 08:14] LABS: CALC OSMOLALITY 272 mosm/kg (275-300); CALCIUM 7.9 mg/dL (8.5-10.1); CARBON DIOXIDE 20.6 mmol/L (21.0-32.0); CHLORIDE - SERUM 106 mmol/L (98-107); GLUCOSE 97 mg/dL (74-106); MAGNESIUM - SERUM 1.8 mg/dL (1.8-2.4); POTASSIUM - SERUM 3.5 mmol/L (3.5-5.1); SODIUM 137 mmol/L (136-145); UREA NITROGEN 11 mg/dL (7-18); eGFR NON AFRICAN AMERICAN 79 mL/min (90-120)
[2017-07-10 13:25] VITALS: Ht 180.3 cm; Wt 68.0 kg
[2017-07-10 20:05] VITALS: BP 129/79
[2017-07-11 06:10] LABS: BASOPHILS 0.6 % (0-2); EOSINOPHILS 5.3 % (0-7); HEMATOCRIT 42.4 % (42.0-54.0); HEMOGLOBIN 14.6 g/dL (13.5-17.5); IMMATURE GRANULOCYTES 0.3 % (0-5); LYMPHOCYTES 24.1 % (15-50); MCH 34.4 pg (26.0-34.0); MCHC 34.4 g/dL (31.0-37.0); MEAN PLATELET VOLUME 11.8 fL (7.4-10.4); NEUTROPHILS 59.7 % (40-80); PLATELET COUNT 164 10x3/uL (130-400); RBC 4.24 10x6/uL (4.20-6.10); RDW 15.2 % (11.5-14.5); WBC 7.9 10x3/uL (4.8-10.8)
[2017-07-11 06:28] LABS: ALBUMIN 2.5 g/dL (3.4-5.0); ANION GAP 15.1 mmol/L (8-16); BILIRUBIN - TOTAL 1.84 mg/dL (0.2-1.3); CALCIUM 8.3 mg/dL (8.5-10.1); CARBON DIOXIDE 20.8 mmol/L (21.0-32.0); CREATININE - SERUM 1.2 mg/dL (0.6-1.3); POTASSIUM - SERUM 3.9 mmol/L (3.5-5.1)
[2017-07-11 08:00] VITALS: BP 110/69
[2017-07-11 19:00] VITALS: BP 130/78
[2017-07-12 09:27] VITALS: BP 133/75
[2017-07-12 20:24] VITALS: BP 121/76
[2017-07-13 08:56] VITALS: BP 138/79
[2017-07-13 19:43] VITALS: BP 124/76
[2017-07-14 05:59] LABS: BASOPHILS 0.7 % (0-2); HEMATOCRIT 36.2 % (42.0-54.0); HEMOGLOBIN 12.8 g/dL (13.5-17.5); IMMATURE GRANULOCYTES 0.3 % (0-5); LYMPHOCYTES 25.9 % (15-50); MCH 35.3 pg (26.0-34.0); MCHC 35.4 g/dL (31.0-37.0); MCV 99.7 fL (80.0-100.0); MEAN PLATELET VOLUME 11.3 fL (7.4-10.4); NEUTROPHILS 56.1 % (40-80); RBC 3.63 10x6/uL (4.20-6.10); RDW 15.1 % (11.5-14.5)
[2017-07-14 06:01] LABS: PLATELET COUNT 114 10x3/uL (130-400)
[2017-07-14 06:09] LABS: ANION GAP 13.5 mmol/L (8-16); CALCIUM 7.9 mg/dL (8.5-10.1); CREATININE - SERUM 1.1 mg/dL (0.6-1.3); POTASSIUM - SERUM 3.5 mmol/L (3.5-5.1)
[2017-07-14 08:00] VITALS: BP 102/57
[2017-07-14 20:51] VITALS: BP 127/72
[2017-07-15 07:59] VITALS: BP 111/66
[2017-07-15] MEDS ORDERED: PERCOCET 10/3251 TA1 PO (10:06)
== END 2017-07-15 16:15 | disposition home health service (06) | DRG 441 ==
LOC: D.REHAB 19:36
PROVIDERS: Emergency Medicine
DX: K72.90 Hepatic failure, unspecified without coma (principal); I81 Portal vein thrombosis; N17.9 Acute kidney failure, unspecified; E72.20 Disorder of urea cycle metabolism, unspecified; R41.82 Altered mental status, unspecified; R13.11 Dysphagia, oral phase; K70.30 Alcoholic cirrhosis of liver without ascites; R41.3 Other amnesia; R53.1 Weakness; R53.83 Other fatigue; K21.9 Gastro-esophageal reflux disease without esophagitis; F41.9 Anxiety disorder, unspecified

== ENCOUNTER → 2018-05-28 12:39 | Outpatient (CLI) | payer MEDICARE, OTHER ==
[2017-07-10 13:25] VITALS: BMI 20.9
== END | disposition home or self-care (01) ==
LOC: D.NM 12:39
PROVIDERS: ATTEND Emergency Medicine
DX: R74.8 Abnormal levels of other serum enzymes (principal)

== ENCOUNTER 2018-11-05 11:37 | Inpatient (IN) | payer MEDICARE, OTHER ==
[~2018-11-05] VITALS: Ht 180.3 cm; Wt 79.4 kg
[2018-11-05 12:01] VITALS: BP 126/76
[2018-11-05 12:33] LABS: BASOPHILS 0.2 % (0-2); EOSINOPHILS 0.3 % (0-7); HEMATOCRIT 28.1 % (42.0-54.0); HEMOGLOBIN 9.8 g/dL (13.5-17.5); IMMATURE GRANULOCYTES 0.4 % (0-5); LYMPHOCYTES 10.9 % (15-50); MCH 37.7 pg (26.0-34.0); MCHC 34.9 g/dL (31.0-37.0); MCV 108.1 fL (80.0-100.0); MEAN PLATELET VOLUME 11.8 fL (7.4-10.4); MONOCYTES 10.6 % (2-11); NEUTROPHILS 77.6 % (40-80); RDW 16.8 % (11.5-14.5); WBC 11.4 10x3/uL (4.8-10.8)
[2018-11-05 12:34] LABS: PLATELET COUNT 86 10x3/uL (130-400)
[2018-11-05 12:44] LABS: APTT 39.4 SECONDS (22.8-39.4); INR 2.22 (0.85-1.17)
[2018-11-05 12:47] LABS: ALKALINE PHOSPHATASE 167 U/L (46-116); ALT (SGPT) 41 U/L (10-68); BILIRUBIN - TOTAL 4.68 mg/dL (0.2-1.3); CALC OSMOLALITY 286 mosm/kg (275-300); CALCIUM 8.6 mg/dL (8.5-10.1); CARBON DIOXIDE 24.4 mmol/L (21.0-32.0); CHLORIDE - SERUM 106 mmol/L (98-107); CREATININE - SERUM 1.8 mg/dL (0.6-1.3); SODIUM 140 mmol/L (136-145); UREA NITROGEN 26 mg/dL (7-18); eGFR NON AFRICAN AMERICAN 40 mL/min (90-120)
[2018-11-05 12:48] LABS: GLUCOSE 160 mg/dL (74-106); PLATELET ESTIMATE DECREASED
[2018-11-05 13:13] LABS: CKMB 20.2 U/L (0.0-3.6); CREATINE KINASE 177 UL (21-232); MAGNESIUM - SERUM 1.4 mg/dL (1.8-2.4)
[2018-11-05 13:24] LABS: TROPONIN-I 4.747 ng/mL (0.000-0.060)
[2018-11-05 13:41] VITALS: BP 136/61
[2018-11-05 16:48] VITALS: BP 126/60
[2018-11-05 17:13] VITALS: BP 115/60
--- NOTE | 2018-11-05 17:14 | NUR ---
REPORT CALLED TO LUIS E BLAND
--- NOTE | 2018-11-05 18:08 | NUR ---
RECIVED FROM ER PER WC TO ROOM 2127. ADMIT ASSESSMENT PER RN
[2018-11-05 18:35] VITALS: BP 115/60; BMI 24.4
[2018-11-05 18:48] LABS: CKMB 17.9 U/L (0.0-3.6); CREATINE KINASE 205 UL (21-232)
[2018-11-05 18:51] LABS: TROPONIN-I 3.465 ng/mL (0.000-0.060)
--- NOTE | 2018-11-05 19:27 | NUR ---
RECIEVED REPORT FROM DAY SHIFT NURSE, ENTERED PTS ROOM, PT WAS NOT IN ROOM. I LEFT PTS ROOM I SPOTTED PT SITTING ON THE BED IN THE ROOM ACROSS THE LEON FROM HIS, PT CONFUSED, WAS ABLE TO STATE HIS OWN NAME BUT DIDNT KNOW WHERE HE WAS OR HOW HE GOT THERE. ASSISTED PT BACK TO HIS ROOM AND IN TO BED. REMOVED PTS JEANS, PLACED A BRIEF AND HOSPITAL GOWN ON PT. REPLACED TELEMETRY BACK ON PT. PLACED LILLIAM KASSIE ALARM ON PTS BED. ASSESSMENT COMPLETE. RESPERATIONS LABORED ON O2 AT 2 LITERS VIA NC. IVS TO RIGHT FOREARM AND LEFT AC. IV SITES CLEAN AND DRY. LARGE BRUISE NOTED TO RIGHT HIP, PT STATED THAT HE FELL INTO THE WALL AT HOME. PT ASKING FOR SOMETHING TO EAT, SANDWHICH TRAY GIVEN ALONG WITH FRESH ICE WATER. PT CURRENTLY DENIES PAIN OR OTHER NEEDS. INSTRUCTED PT TO USE CL WHEN NEEDING ASSISTANCE.
[2018-11-05 20:27] VITALS: BP 104/66
--- NOTE | 2018-11-05 21:10 | NUR ---
HS MEDS GIVEN WITH FRESH ICE WATER.
[2018-11-06 00:27] VITALS: BP 101/60
[2018-11-06 01:12] LABS: CKMB 12.6 U/L (0.0-3.6); CREATINE KINASE 240 UL (21-232)
[2018-11-06 01:13] LABS: TROPONIN-I 2.587 ng/mL (0.000-0.060)
--- NOTE | 2018-11-06 01:58 | NUR ---
BENADRYL 50 MG GIVEN ORDERED FOR RESTLESSNESS.
[2018-11-06 03:07] LABS: BASOPHILS 0.2 % (0-2); EOSINOPHILS 0.4 % (0-7); HEMATOCRIT 27.1 % (42.0-54.0); HEMOGLOBIN 9.3 g/dL (13.5-17.5); IMMATURE GRANULOCYTES 0.2 % (0-5); LYMPHOCYTES 21.7 % (15-50); MCH 37.7 pg (26.0-34.0); MCHC 34.3 g/dL (31.0-37.0); MCV 109.7 fL (80.0-100.0); MEAN PLATELET VOLUME 13.2 fL (7.4-10.4); MONOCYTES 9.5 % (2-11); PLATELET COUNT 103 10x3/uL (130-400); RBC 2.47 10x6/uL (4.20-6.10); RDW 17.4 % (11.5-14.5); WBC 10.6 10x3/uL (4.8-10.8)
[2018-11-06 03:15] LABS: INR 2.37 (0.85-1.17); PROTIME 25.2 SECONDS (11.6-15.0)
--- NOTE | 2018-11-06 03:19 | NUR ---
I have reviewed this patient and I concur with the Shift Assessment completed by the Licensed Practical Nurse today this shift.
--- NOTE | 2018-11-06 03:21 | NUR ---
RESTING WITH EYES CLOSED, RESPERATONS EVEN, NO S/S DSITRESS NOTED.
[2018-11-06 03:36] LABS: ALBUMIN 2.1 g/dL (3.4-5.0); ALKALINE PHOSPHATASE 154 U/L (46-116); ALT (SGPT) 45 U/L (10-68); BILIRUBIN - TOTAL 4.66 mg/dL (0.2-1.3); CALCIUM 8.5 mg/dL (8.5-10.1); CARBON DIOXIDE 20.2 mmol/L (21.0-32.0); CHLORIDE - SERUM 105 mmol/L (98-107); CKMB 12.1 U/L (0.0-3.6); CREATININE - SERUM 1.9 mg/dL (0.6-1.3); GLUCOSE 128 mg/dL (74-106); MAGNESIUM - SERUM 1.6 mg/dL (1.8-2.4); POTASSIUM - SERUM 4.7 mmol/L (3.5-5.1); PROTEIN - SERUM 6.1 g/dL (6.4-8.2); SODIUM 140 mmol/L (136-145); eGFR NON AFRICAN AMERICAN 37 mL/min (90-120)
[2018-11-06 03:41] LABS: CALC OSMOLALITY 288 mosm/kg (275-300); CREATINE KINASE 336 UL (21-232); TROPONIN-I 2.517 ng/mL (0.000-0.060); UREA NITROGEN 34 mg/dL (7-18)
[2018-11-06 04:19] VITALS: BP 113/70
--- NOTE | 2018-11-06 07:00 | NUR ---
PATIENT RESTING IN BED ALERT BUT DISORIENTED TO PLACE TIME AND SITUATION. IN ROOM. LINENS SOILED FROM INCONTINENT URINATION--CLEANED AND CHAGNED. EQUAL STRENGTH TO ALL 4 EXTREMETIES AND EQUAL PUPILS. SCLERA SLIGHTLY YELLOWE TENTED--ABDOMEN SLIGHTLY DISTENDED FROM ASCITES. PATIENT IS IMPLUSIVE AND BED ALARM IS ON. WILL CONTINUE TO MONITOR
[2018-11-06 08:32] VITALS: BP 110/65
[2018-11-06 11:34] VITALS: BP 119/62
[2018-11-06 13:50] VITALS: Ht 180.3 cm; Wt 79.4 kg
--- NOTE | 2018-11-06 13:50 | NUR ---
FRANCISCO JAVIER HUNT MADE ROUNDS ON PATIENT AND VISITED WITH FAMILY. OBTAINED ORDERS FOR IV FLUIDS.
--- NOTE | 2018-11-06 14:37 | NUR ---
PT HAD LOOSE BM ON BED TALLEY. NURSE AND TECH CLEANED AND CHANGED LINENS. PULLED UP IN BED. IN ROOM. PT AWAKE AND ALERT. WILL CONTINUE TO MONITOR
[2018-11-06 16:23] VITALS: BP 123/70
--- NOTE | 2018-11-06 19:30 | NUR ---
RECEIVED REPORT, WILL ASSUME CARE OF PT, REPOSITIONED PT IN BED, [id number], IV-INFUSING RFA @100 NS, BED IS LOW, SRX3, CALL LIGHT IN REACH, LILLIAM ALARM IS ON, WILL CONTINUE PLAN OF CARE
[2018-11-06 20:00] VITALS: BP 128/73
--- NOTE | 2018-11-06 20:53 | NUR ---
PM MEDS GIVEN, ERICA MATUTE, CALL LIGHT IN REACH
--- NOTE | 2018-11-06 21:57 | NUR ---
PT HAD A BM, ASSIST JULIO WITH CLEAN UP AND COMPLETE LINEN CHANGE
[2018-11-07] VITALS: BP 125/75
--- NOTE | 2018-11-07 02:36 | NUR ---
I have reviewed this patient and I concur with the Shift Assessment completed by the Licensed Practical Nurse today this shift.
[2018-11-07 04:00] VITALS: BP 153/85
[2018-11-07 06:32] LABS: BASOPHILS 0.2 % (0-2); EOSINOPHILS 0.2 % (0-7); HEMATOCRIT 26.8 % (42.0-54.0); HEMOGLOBIN 9.2 g/dL (13.5-17.5); IMMATURE GRANULOCYTES 0.5 % (0-5); LYMPHOCYTES 16.7 % (15-50); MCH 37.7 pg (26.0-34.0); MCHC 34.3 g/dL (31.0-37.0); MCV 109.8 fL (80.0-100.0); MEAN PLATELET VOLUME 12.5 fL (7.4-10.4); MONOCYTES 8.6 % (2-11); NEUTROPHILS 73.8 % (40-80); PLATELET COUNT 105 10x3/uL (130-400); RBC 2.44 10x6/uL (4.20-6.10); RDW 18.3 % (11.5-14.5); WBC 12.2 10x3/uL (4.8-10.8)
--- NOTE | 2018-11-07 07:00 | NUR ---
RECEIVED REPORT. ASSUMED CARE OF PATIENT. CALL LIGHT WITHIN REACH. RESTING WITH EYES CLOSED. NO DISTRESS. LILLIAM ALARM PATENT.
[2018-11-07 07:05] LABS: ALBUMIN 2.2 g/dL (3.4-5.0); ANION GAP 13.5 mmol/L (8-16); BILIRUBIN - TOTAL 4.91 mg/dL (0.2-1.3); CALCIUM 8.1 mg/dL (8.5-10.1); CARBON DIOXIDE 25.2 mmol/L (21.0-32.0); MAGNESIUM - SERUM 1.6 mg/dL (1.8-2.4); POTASSIUM - SERUM 4.7 mmol/L (3.5-5.1); PROTEIN - SERUM 6.7 g/dL (6.4-8.2)
[2018-11-07 07:06] LABS: CREATININE - SERUM 1.4 mg/dL (0.6-1.3)
--- NOTE | 2018-11-07 08:29 | NUR ---
PLACED PATIENT ON BEDPAN AT THIS TIME. PATIENT VERY WEAK AND UNALBE TO ASSIST GETTING OUT OF BED. REQUIRES MAX ASSSIT FROM NURSING STAFF. NO DISTRESS. PATIENT AT BEDSIDE.
[2018-11-07 09:14] VITALS: BP 145/92
--- NOTE | 2018-11-07 11:08 | NUR ---
MAGNESIUM ADMINISTERED.
--- NOTE | 2018-11-07 12:56 | NUR ---
INCONTINENT CARE PROVIDED. COMPLETE LINEN CHANGE PROVIDED. CALL LIGHT WITHIN REACH. PATIENT HAS GONE FOR THE AFTERNOON, NO FAMILY AT BEDSIDE. LILLIAM MAT PATENT. NO DISTRESS.
--- NOTE | 2018-11-07 15:18 | NUR ---
RESTING IN BED. CALL LIGHT WITHIN REACH. TOOK LACTULOSE WITHOUT DIFFICULTY. PATEINT AT BEDSIDE. NO DISTRESS.
[2018-11-07 16:49] VITALS: BP 140/98
--- NOTE | 2018-11-07 16:55 | NUR ---
MEDICATED FOR PAIN. NO DISTRESS. RESTING IN BED AWAITING FOR PM MEAL.
[2018-11-07 21:08] VITALS: BP 150/93
--- NOTE | 2018-11-07 21:59 | NUR ---
INITIAL ROUNDS COMPLETED AT 1914 HRS. PT TAKING CLOTHES OFF AND ATTEMPTING TO CRAWL OUT OF BED. PT ASSISTED BACK TO BED AND GOWN PLACED BACK ON PT. PT THEN TOOK OFF GOWN. GOWN PLACED BACK ON AND PT INFORMED TO KEEP CLOTHES ON. PT ATEMPTED TO CRAWL OUT OF BED NUMEROUS TIMES DURING SHIFT CAHNGE. ASSESSMENT COMPLETED AT 1939 HRS. PT REQUESTED BEDPAN. PT PLACED ON BEDPAN. PT VOIDED MOERATE AMOUNT OF BROWN DIARRHEA, REMOVED BEDPAN PER SELF AND PLACED L HAND IN IT AND SPLASHED AROUND. PT CLEANED AND BED LINENS CHANGED. PT UNCOOPERATIVE DURING ACTIVITY. IV TO R WRIST WITH NS AT 100CC/HR. IV PATENT. O2 2LNC. LUNGS DIMINISHED IN BASES BILAT. LARGE PURPLE BRUISE NOTED FROM OUTER R HIP DOWN TO MID R THIGH. SQUARE BRUISE NOTED ABOVE SACRUM. MOTT. PALPABLE PERIPHERAL PULSES. PT ALERT; ORIENTED TO PERSON ONLY. PT TALKING ABOUT ALL THE PEOPLE WHO TODAY FROM [employer] [place]. DIFFICULT TO REORIENT. PT KIRAN STATED HE NEEDED TO URINE. ASSISTED PT TO SITTING POSITON ON SIDE OF BED. NO URINE. ASSISTED PT BACK TO BED AND URINAL PLACED BETWEEN LEGS. NO URINE. PT CRAELING OUT OF BED APPROX 10 MINUTES LATER AND INCONTINENT OF URINE. INCONTINENT CARE DONE, BED LINENS CHANGED. PM MEEDA GIVEN PER ORDERS. PT CURRENTLY RESTING WITH EYES CLOSED. RESP EVEN AND REGULAR. SR UP X3, CALL LIGHT WITHIN REACH, DOOR OPEN AND IN LINE OF SIGHT OF NURSE'S STATION AND BED ALARM ON.
--- NOTE | 2018-11-08 00:18 | NUR ---
PT RESTING WITH EYES CLOSED. RESP EVEN AND REGULAR. PT CLEAN AND DRY AT THIS TIME. SR UP X2, CALL LIGHT WITHIN REACH, DOOR OPEN AND BED ALARM ON.
--- NOTE | 2018-11-08 02:06 | NUR ---
PT INCONTINENT OF URINE AND STOOL. INCONTINENT CARE DONE; BED LINENS CHANGED. SR UP X3, CALL LIGHT WITHIN REACH, DOOR OPEN AND BED ALARM ON.
--- NOTE | 2018-11-08 02:59 | NUR ---
PT RESTING WITH EYES CLOSED. RESP EVEN AND REGULAR. SR UP X3, CALL LIGHT WITHIN REACH, DOOR OPEN AND BED ALARM ON.
--- NOTE | 2018-11-08 05:08 | NUR ---
PT UP TO BR. HAND MODERATE AMOUNT OF EXPLOSIVE DIARRHEA. ASSISTED BACK TO BED. PT UNSTEADY ON FEET. SR UP X3, CALL LIGHT WITHIN REACH,DOOR OPEN AND BED ALARM ON.
[2018-11-08 05:27] LABS: BASOPHILS 0.2 % (0-2); EOSINOPHILS 0.7 % (0-7); HEMATOCRIT 23.4 % (42.0-54.0); IMMATURE GRANULOCYTES 0.6 % (0-5); MCH 38.6 pg (26.0-34.0); MCHC 34.2 g/dL (31.0-37.0); MEAN PLATELET VOLUME 11.8 fL (7.4-10.4); MONOCYTES 12.1 % (2-11); NEUTROPHILS 65.4 % (40-80); RBC 2.07 10x6/uL (4.20-6.10); RDW 19.5 % (11.5-14.5)
[2018-11-08 05:53] LABS: PLATELET COUNT 74 10x3/uL (130-400); WBC 8.1 10x3/uL (4.8-10.8)
[2018-11-08 05:56] LABS: ALBUMIN 1.9 g/dL (3.4-5.0); ANION GAP 10.7 mmol/L (8-16); BILIRUBIN - TOTAL 4.44 mg/dL (0.2-1.3); CALCIUM 7.8 mg/dL (8.5-10.1); CARBON DIOXIDE 24.8 mmol/L (21.0-32.0); CREATININE - SERUM 1.3 mg/dL (0.6-1.3); MAGNESIUM - SERUM 1.7 mg/dL (1.8-2.4); PLATELET ESTIMATE DECREASED; POTASSIUM - SERUM 4.5 mmol/L (3.5-5.1); PROTEIN - SERUM 5.6 g/dL (6.4-8.2)
[2018-11-08 05:59] VITALS: BP 142/74
--- NOTE | 2018-11-08 07:00 | NUR ---
RECEIVED REPORT. ASSUMED CARE OF PATIENT. RESTING WITH EYES CLOSED. IV FLUIDS INFUSING ORDERED. CALL LIGHT WITHIN REACH. NO DISTRESS. SR ON TELEMETRY.
[2018-11-08 08:08] VITALS: BP 141/89
--- NOTE | 2018-11-08 09:19 | NUR ---
BED BATH AND COMPLETE LINEN CHAGE AT THIS TIME. PATIENT INCONTINENT OF LIQUID STOOL FROM LACTULOSE USE. PATIENT AT BEDSIDE. CALL LIGHT WITHIN REACH. NO DISTRESS.
[2018-11-08 11:40] VITALS: BP 156/95
--- NOTE | 2018-11-08 13:11 | NUR ---
MEDICATED FOR PAIN AT THIS TIME. NO DISTRESS. INCONTINENT CARE PROVIDED.
--- NOTE | 2018-11-08 15:15 | NUR ---
UPON REVIEWING PATIENT PROGRESS NOTES, THIS NURSE WAS NAMED IN PHYSICIAN PROGRESS NOTES FOR 11/07/18 AND 11/08/18, THAT PATIENT WAS DISCUSSED AT GREAT LENGHTS WITH THIS RUBY RAILS DEVELOPER. THIS RUBY RAILS DEVELOPER DID NOT DISCUSS PATIENT WITH NURSE PRACTITIONER OR PHYSICIAN AT GREAT LENGTH UNLESS MENTIONING THAT PATIENT DID NOT SLEEP WELL ON THE PREVIOUS SHIFT DUE TO SUNDOWNING BEHAVIORS.
--- NOTE | 2018-11-08 16:42 | NUR ---
ASSISTED PATIENT ONTO BEDPAN AND BACK OFF. PATIENT RESTING IN BED WITH EYES OPEN, CONFUSED AND CALLING HIS CURRENT BY HIS SECOND WIFES NAME. CALL LIGHT PLACED WITHIN REACH. NO DISTRESS. RESP EVEN AND UNLABORED.
[2018-11-08 16:52] VITALS: BP 143/84
--- NOTE | 2018-11-08 19:20 | NUR ---
RECEIVED REPORT, WILL ASSUME CARE OF PT, PT IS SLEEPING, NO DISTRESS NOTICED AT THIS TIME, BED IS LOW, SRX2, CALL LIGHT IN REACH, WILL CONTINUE PLAN OF CARE
[2018-11-08 20:00] VITALS: BP 142/79
[2018-11-09] VITALS: BP 129/92
[2018-11-09 04:00] VITALS: BP 126/80
--- NOTE | 2018-11-09 04:43 | NUR ---
I have reviewed this patient and I concur with the Shift Assessment completed by the Licensed Practical Nurse today this shift.
[2018-11-09 06:56] LABS: HEMOGLOBIN 9.5 g/dL (13.5-17.5); MCH 38.3 pg (26.0-34.0); MCHC 32.9 g/dL (31.0-37.0); MEAN PLATELET VOLUME 13.7 fL (7.4-10.4); PLATELET COUNT 76 10x3/uL (130-400); RBC 2.48 10x6/uL (4.20-6.10); RDW 20.5 % (11.5-14.5); WBC 8.9 10x3/uL (4.8-10.8)
[2018-11-09 07:01] LABS: HEMATOCRIT 28.9 % (42.0-54.0); MCV 116.5 fL (80.0-100.0)
[2018-11-09 07:11] LABS: ANION GAP 14.5 mmol/L (8-16); BILIRUBIN - TOTAL 4.11 mg/dL (0.2-1.3); CALCIUM 7.8 mg/dL (8.5-10.1); CARBON DIOXIDE 22.8 mmol/L (21.0-32.0); CREATININE - SERUM 1.1 mg/dL (0.6-1.3); MAGNESIUM - SERUM 1.7 mg/dL (1.8-2.4); POTASSIUM - SERUM 4.3 mmol/L (3.5-5.1); PROTEIN - SERUM 6.1 g/dL (6.4-8.2)
[2018-11-09 08:17] VITALS: BP 152/86
[2018-11-09 08:26] LABS: ANISOCYTOSIS 1+; EOSINOPHILS 3 % (0-7); LYMPHOCYTES 12 % (15-50); MONOCYTES 12 % (2-11); NEUTROPHILS 72 % (40-80); PLATELET ESTIMATE DECREASED; POIKILOCYTOSIS 1+; POLYCHROMASIA 1+
--- NOTE | 2018-11-09 08:30 | NUR ---
PATIENT RESTING WITH EYES CLOSED. O2 IS ON THE PATIENT. PATIENT CONFUSED. BRUISING NOTED TO THE RIGHT HIP AND BACK AREA. IV TO THE RIGHT WRIST INFUSING. FAMILY REFUSED THE LACTULOSE ORDERED.
[2018-11-09 12:10] VITALS: BP 132/74
--- NOTE | 2018-11-09 14:08 | NUR ---
Nutrition Follow-up: Pt's reports overall poor PO intake but drinking Ensure. States pt experienced diarrhea over the weekend; noted pt on Lactulose. Diet: Cardiac, Ensure with meals PO intake: 33% avg x 6 meals Wt: 175# Last BM: 11/08 Labs reviewed Meds reviewed Continue current diet as tolerated. [place] food preferences within diet restrictions. RD following.
--- NOTE | 2018-11-09 14:30 | MORECARE ---
CASE MANAGEMENT DISCHARGE SUMMARY PATIENT: REEMA ADAM UNIT: [id number] ADM DATE: 11/05/18 AGE: 68 : 48 SEX: M ROOM/BED: D.2127 AUTHOR: ROXANE WOOTEN PHYSICIAN: REFERRING PHYSICIAN: BRIANA BATISTA MD DATE OF SERVICE: 11/09/18 Discharge Plan Patient Name: REEMA ADAM [facility] [facility] 1950 Planned Disposition: [facility] Anticipated Discharge Date: 11/10/18 Discharge Date: Expected LOS: 5 Initial Reviewer: [email or web address] Initial Review Date: 11/09/2018 Generated: 11/09/18 3:30 pm Patient Name: REEMA ADAM Page [phone] at 1430 All edits/amendments must be made on the electronic document DICTATION DATE: 11/09/181428 LAST MODEL DEPARTMENT SUPERVISOR: MIN 11/09/181428 RPT#: [id number] DC DATE: STATUS: ADM IN [facility] [address] [place] [address] END OF REPORT
--- NOTE | 2018-11-09 14:55 | MORECARE ---
CASE MANAGEMENT DISCHARGE SUMMARY PATIENT: REEMA ADAM UNIT: [id number] ADM DATE: 11/05/18 AGE: 68 : 48 SEX: M ROOM/BED: D.2127 AUTHOR: ROXANE WOOTEN PHYSICIAN: REFERRING PHYSICIAN: BRIANA BATISTA MD DATE OF SERVICE: 11/09/18 Discharge Plan Patient Name: REEMA ADAM [facility] [facility] 1950 Planned Disposition: Retirement Facility Anticipated Discharge Date: 11/10/18 Discharge Date: Expected LOS: 5 Initial Reviewer: [id number] Initial Review Date: 11/09/2018 Generated: 11/09/18 3:55 pm DCPIA - Discharge Planning Initial Assessment Updated by [email or web address]: Ranjit Page on 11/09/18 2:54 pm * Is the patient Alert and Oriented? Yes * How many steps to enter\exit or inside your home? * PCP DR. HAWLEY * [facility] * Preadmission Environment Home with Family * ADLs Partial Dependent * Partial ADLs (Assistance needed) Medication Management * Equipment Oxygen * Other Equipment [facility]- HOME AND PORTABLE OXYGEN * List name and contact numbers for known caregivers / representatives who currently or will assist patient after discharge: BRENDAN ADAM, SPOUSE, * Verbal permission to speak to the caregivers and representatives has been obtained from the patient. N/A * Community resources currently utilized None * Please name any agencies selected above. NONE * Additional services required to return to the preadmission environment? Yes * Can the patient safely return to the preadmission environment? Yes * Has this patient been hospitalized within the prior 30 days at any hospital? No Last DP export: 11/09/18 1:30 p Patient Name: REEMA ADAM Page [id number] at 1452 All edits/amendments must be made on the electronic document DICTATION DATE: 11/09/182 FREEDOM OF INFORMATION OFFICER: MIN 11/09/18 1451 RPT#: [id number] DC DATE: STATUS: ADM IN [facility] [address] [place] [address] END OF REPORT
--- NOTE | 2018-11-09 15:05 | MORECARE ---
CASE MANAGEMENT DISCHARGE SUMMARY PATIENT: REEMA ADAM UNIT: [id number] ADM DATE: 11/05/18 AGE: 68 : 48 SEX: M ROOM/BED: D.1612 AUTHOR: SUGAR,DOC PHYSICIAN: REFERRING PHYSICIAN: BRIANA BATISTA MD DATE OF SERVICE: 11/09/18 Discharge Plan Patient Name: REEMA ADAM [facility] [facility] 1950 Planned Disposition: Assisted Facility Anticipated Discharge Date: 11/10/18 Discharge Date: Expected LOS: 5 Initial Reviewer: [id number] Initial Review Date: 11/09/2018 Generated: 11/09/18 4:05 pm Comments DCP- Discharge Planning Updated by [email or web address]: Ranjit Page on 11/09/18 1:[address] Patient Name: REEMA ADAM Admission Status: ER Accout number: [id number] Admission Date: 11-05-2018 : 1950 Admission Diagnosis: Attending: LYNNE, Current LOS: 4 Anticipated DC Date: 11-10-2018 Planned Disposition: Assisted Facility Primary Insurance: MEDICARE A & B PLANNED EXTERNAL PROVIDER: [facility], MEDICARE REHAB BED Discharge Planning Comments: CM RECEIVED ORDER FOR SKILLED NURSIING REFERRAL. CM MET WITH PT AND SPOUSE IN ROOM TO DISCUSS DISCHARGE PLANNING AND NEEDS. REEMA ADAM provided verbal consent to discuss current and ongoing needs with/in the presence of: SPOUSE, BRENDAN. PT REPORTS LIVING AT HOME DEPENDENTLY WITH HIS SPOUSE WHO ASSISTS WITH MEDICATION MANAGEMENT. PT HAS HOME AND PORTABLE OXYGEN FROM [employer]. PT HAS NO OUTSIDE SERVICES ASSISTING IN THE HOME. CM DISCUSSED AVAILABILITY OF HOME HEALTH, REHAB SERVICES AND MEDICAL EQUIPMENT. PT WILLING FOR REHAB AT RESIDENTIAL FACILITY; CM PROVIDED LISTING OF PROVIDERS. PT'S SPOUSE CHOICE WAS FOR THE [facility] AND [place], CHOICE SIGNED.IMPORTANT MESSAGE FROM MEDICARE PROVIDED AND EXPLAINED. CM NOTIFIED SAMPSON OF THE [facility] OF REFERRAL, . CM FAXED REFERRAL FOR REHAB TO [facility], . CM WAITING ADMISSION DETERMINATION FROM THE [facility]. And Taxi Instructor Bus Trolley: Ranjit Page DCPIA - Discharge Planning Initial Assessment Updated by [email or web address]: Ranjit Page on 11/09/18 2:54 pm * Is the patient Alert and Oriented? Yes * How many steps to enter\exit or inside your home? * PCP DR. HAWLEY * [facility] * Preadmission Environment Home with Family * ADLs Partial Dependent * Partial ADLs (Assistance needed) Medication Management * Equipment Oxygen * Other Equipment [facility] [employer] [facility]- HOME AND PORTABLE OXYGEN * List name and contact numbers for known caregivers / representatives who currently or will assist patient after discharge: BRENDAN ADAM, SPOUSE, * Verbal permission to speak to the caregivers and representatives has been obtained from the patient. N/A * Community resources currently utilized None * Please name any agencies selected above. NONE * Additional services required to return to the preadmission environment? Yes * Can the patient safely return to the preadmission environment? Yes * Has this patient been hospitalized within the prior 30 days at any hospital? No External Providers External Provider: [facility] Next Contact Date: 11/09/2018 Service Request Date: Service Type: Resolution: Reviewer: Comments: Last DP export: 11/09/18 1:55 p Patient Name: REEMA ADAM Page [id number] at 1505 All edits/amendments must be made on the electronic document DICTATION DATE: 11/09/181503 SALVAGE MECHANIC: MIN 11/09/18 150 RPT#: [id number] DC DATE: STATUS: ADM IN [facility] [address] [place] [address] END OF REPORT
[2018-11-09 15:31] VITALS: BP 125/80
--- NOTE | 2018-11-09 19:22 | NUR ---
AWAKE AND ALERT PT IS INC AT THIS TIME OF URINE SKIN WARM AND DRY PT IS CONFUSED ABOUT SITUATION AND TIME BED IS LOW AND LOCKED AND CALL LIHT IS IN REACH
[2018-11-09 20:00] VITALS: BP 125/84
[2018-11-10 04:00] VITALS: BP 130/78
[2018-11-10 04:45] LABS: BASOPHILS 0.4 % (0-2); EOSINOPHILS 2.6 % (0-7); HEMOGLOBIN 9.2 g/dL (13.5-17.5); IMMATURE GRANULOCYTES 0.8 % (0-5); LYMPHOCYTES 20.3 % (15-50); MCH 38.7 pg (26.0-34.0); MCHC 32.9 g/dL (31.0-37.0); MCV 117.6 fL (80.0-100.0); MEAN PLATELET VOLUME 12.3 fL (7.4-10.4); MONOCYTES 10.3 % (2-11); NEUTROPHILS 65.6 % (40-80); PLATELET COUNT 74 10x3/uL (130-400); RBC 2.38 10x6/uL (4.20-6.10); RDW 21.6 % (11.5-14.5); WBC 9.2 10x3/uL (4.8-10.8)
[2018-11-10 05:08] LABS: ALBUMIN 1.6 g/dL (3.4-5.0); ANION GAP 8.4 mmol/L (8-16); BILIRUBIN - TOTAL 3.7 mg/dL (0.2-1.3); CALCIUM 7.1 mg/dL (8.5-10.1); CARBON DIOXIDE 26.9 mmol/L (21.0-32.0); CREATININE - SERUM 1.1 mg/dL (0.6-1.3); MAGNESIUM - SERUM 1.7 mg/dL (1.8-2.4); POTASSIUM - SERUM 4.3 mmol/L (3.5-5.1); PROTEIN - SERUM 5.6 g/dL (6.4-8.2)
--- NOTE | 2018-11-10 07:45 | NUR ---
ASSESSMENT DONE. DENIES NEEDS
[2018-11-10 09:29] VITALS: BP 116/78
[2018-11-10 11:58] VITALS: BP 110/69
--- NOTE | 2018-11-10 13:38 | MORECARE ---
CASE MANAGEMENT DISCHARGE SUMMARY PATIENT: REEMA ADAM UNIT: [id number] ADM DATE: 11/05/18 AGE: 68 : 48 SEX: M ROOM/BED: D.6979 AUTHOR: SUGAR,DOC PHYSICIAN: REFERRING PHYSICIAN: BRIANA BATISTA MD DATE OF SERVICE: 11/10/18 Discharge Plan Patient Name: REEMA ADAM Facility: [facility]:[place] : 1950 Planned Disposition: [facility] Facility Anticipated Discharge Date: 11/10/18 Discharge Date: Expected LOS: 5 Initial Reviewer: [id number] Initial Review Date: 11/09/2018 Generated: 11/10/18 2:37 pm Comments DCP- Discharge Planning Updated by [email or web address]: Ranjit Page on 11/10/18 12:[address] Patient Name: REEMA ADAM Encounter No: [id number] : 1950 Primary Insurance: MEDICARE A & B Anticipated DC Date: 11-10-2018 Planned Disposition: [facility] Facility External Planned Provider: [facility], MEDICARE REHAB BED DCP follow-up note: CM RECEIVED CALL FROM AMI OF THE [facility], THEY WILL ACCEPT PT FOR REHAB WHEN STABLE FOR DISCHARGE TO REHAB. PT WILL BE ON 6 LEON IN THE [place] [facility]. CM NOTIFIED PT IN ROOM AND PT'S SPOUSE VIA PHONE. CM NOTIFIED FRANCISCO JAVIER MIRZA. FOR DISCHARGE TO REHAB, FAX DISCHARGE INFORMATION TO THE [facility] AT [phone]. NURSE REPORT TO BE CALLED TO THE [facility] AT [phone]. THE [facility] TO ARRANGE VAN TRANSPORTATION. JOSE A Babb DCP- Discharge Planning Updated by [id number]: Ranjit Page on 11/09/18 1:[address] Patient Name: REEMA ADAM Admission Status: ER Accout number: [id number] Admission Date: 11-05-2018 : 1950 Admission Diagnosis: Attending: LYNNE, Current LOS: 4 Anticipated DC Date: 11-10-2018 Planned Disposition: [facility] Facility Primary Insurance: MEDICARE A & B PLANNED EXTERNAL PROVIDER: [facility], MEDICARE REHAB BED Discharge Planning Comments: CM RECEIVED ORDER FOR SKILLED NURSIING REFERRAL. CM MET WITH PT AND SPOUSE IN ROOM TO DISCUSS DISCHARGE PLANNING AND NEEDS. REEMA ADAM provided verbal consent to discuss current and ongoing needs with/in the presence of: SPOUSE, BRENDAN. PT REPORTS LIVING AT HOME DEPENDENTLY WITH HIS SPOUSE WHO ASSISTS WITH MEDICATION MANAGEMENT. PT HAS HOME AND PORTABLE OXYGEN FROM [employer] [facility]. PT HAS NO OUTSIDE SERVICES ASSISTING IN THE HOME. CM DISCUSSED AVAILABILITY OF HOME HEALTH, REHAB SERVICES AND MEDICAL EQUIPMENT. PT WILLING FOR REHAB AT SNF FACILITY; CM PROVIDED LISTING OF PROVIDERS. PT'S SPOUSE CHOICE [facility], CHOICE SIGNED.IMPORTANT MESSAGE FROM MEDICARE PROVIDED AND EXPLAINED. CM NOTIFIED SAMPSON OF THE [facility] OF REFERRAL, . CM FAXED REFERRAL FOR REHAB TO THE [facility], . CM WAITING ADMISSION DETERMINATION FROM THE [facility]. Special Certificate Dictator: Ranjit Page DCPIA - Discharge Planning Initial Assessment Updated by [id number]: Ranjit Page on 11/09/18 2:54 pm * Is the patient Alert and Oriented? Yes * How many steps to enter\exit or inside your home? * PCP DR. HAWLEY * [facility] * Preadmission Environment Home with Family * ADLs Partial Dependent * Partial ADLs (Assistance needed) Medication Management * Equipment Oxygen * Other Equipment [employer]- HOME AND PORTABLE OXYGEN * List name and contact numbers for known caregivers / representatives who currently or will assist patient after discharge: BRENDAN ADAM, SPOUSE, * Verbal permission to speak to the caregivers and representatives has been obtained from the patient. N/A * Community resources currently utilized None * Please name any agencies selected above. NONE * Additional services required to return to the preadmission environment? Yes * Can the patient safely return to the preadmission environment? Yes * Has this patient been hospitalized within the prior 30 days at any hospital? No Coverage Notice Reviewer: [email or web address] Page Notice Issued Date-Time: 11/09/2018 12:40 Notice Type: IM Discharge Notice Notice Delivered To: Patient Relationship to Patient: Contracting Engineer Name: Delivery Method: HAND - Hand Delivered Kim Days: Prior Verbal Notification: Recipient Understood Notice: Yes Recipient Signature: Yes Med Rec Note Co-signed by Attending: Coverage Notice Comment: Reviewer: PRINCE Page Notice Issued Date-Time: 11/09/2018 12:40 Notice Type: Patient Choice Letter Notice Delivered To: Patient Relationship to Patient: Contracting Engineer Name: Delivery Method: HAND - Hand Delivered Kim Days: Prior Verbal Notification: Recipient Understood Notice: Yes Recipient Signature: Yes Med Rec Note Co-signed by Attending: Coverage Notice Comment: 1- SARA QUEZADA 2- [facility] DP export: 11/09/18 2:05 p Patient Name: REEMA ADAM Page [id number] at 1338 All edits/amendments must be made on the electronic document DICTATION DATE: 11/10/187 GROCERY STORE ASSOCIATE: MIN 11/10/18 1337 RPT#: [id number] DC DATE: STATUS: ADM IN [facility] [address] [place] [address] END OF REPORT
[2018-11-10 14:56] VITALS: BP 113/70
--- NOTE | 2018-11-10 17:50 | NUR ---
WITHOUT CHANGES OR DISTRESS NOTED AT THIS TIME. DENIES NEED
--- NOTE | 2018-11-10 19:00 | NUR ---
PATIENT LAYING IN BED, EYES CLOSED, CHEST RISING AND FALLING. NO DISTRESS NOTED.
[2018-11-10 20:00] VITALS: BP 101/72
--- NOTE | 2018-11-11 01:59 | NUR ---
I have reviewed this patient and I concur with the Shift Assessment completed by the Licensed Practical Nurse today this shift.
[2018-11-11 04:00] VITALS: BP 106/68
[2018-11-11 06:29] LABS: BASOPHILS 0.2 % (0-2); EOSINOPHILS 1.8 % (0-7); HEMATOCRIT 29.7 % (42.0-54.0); HEMOGLOBIN 9.8 g/dL (13.5-17.5); IMMATURE GRANULOCYTES 0.5 % (0-5); LYMPHOCYTES 16.8 % (15-50); MCH 38.4 pg (26.0-34.0); MCV 116.5 fL (80.0-100.0); MEAN PLATELET VOLUME 13.1 fL (7.4-10.4); NEUTROPHILS 70.7 % (40-80); PLATELET COUNT 85 10x3/uL (130-400); RBC 2.55 10x6/uL (4.20-6.10); RDW 22.3 % (11.5-14.5); WBC 10.1 10x3/uL (4.8-10.8)
[2018-11-11 06:55] LABS: ALBUMIN 1.8 g/dL (3.4-5.0); ANION GAP 11.8 mmol/L (8-16); BILIRUBIN - TOTAL 4.81 mg/dL (0.2-1.3); CALCIUM 7.4 mg/dL (8.5-10.1); CARBON DIOXIDE 24.4 mmol/L (21.0-32.0); CREATININE - SERUM 1.1 mg/dL (0.6-1.3); MAGNESIUM - SERUM 1.8 mg/dL (1.8-2.4); POTASSIUM - SERUM 4.2 mmol/L (3.5-5.1); PROTEIN - SERUM 5.9 g/dL (6.4-8.2)
[2018-11-11 08:47] VITALS: BP 107/78
[2018-11-11 08:53] VITALS: BP 107/78
[2018-11-11 09:39] LABS: PLATELET ESTIMATE DECREASED
[2018-11-11 09:40] LABS: ANISOCYTOSIS 1+; HELMET CELLS OCC; POLYCHROMASIA OCC
[2018-11-11 09:41] LABS: SPHEROCYTES OCC
--- NOTE | 2018-11-11 12:10 | NUR ---
FED PT LUNCH. SHE ATE ABOUT 50%.
--- NOTE | 2018-11-11 12:17 | NUR ---
PT'S FED PT LUNCH.
[2018-11-11 12:52] VITALS: BP 111/76
--- NOTE | 2018-11-11 13:06 | NUR ---
I have reviewed this patient and I concur with the Shift Assessment completed by the Licensed Practical Nurse today this shift.
--- NOTE | 2018-11-11 14:11 | NUR ---
ANOTHER NURSE STATED TO DR. LARA THAT PT'S IS NOT COMFORTABLE WITH PT GETTING DC'D TODAY D/T AMMONIA LEVEL BEING ELEVATED. DR. LARA STATED TO NURSE "HE IS DISCHARGED. HE HAS CIRRHOSIS OF THE LIVER THERE IS NOTHING MORE WE CAN DO. SEND THEM HOME AND IF THEY WON'T LEAVE CALL SECURITY AND HAVE THEM ESCORTED OUT." DR. LARA DID NOT GO SPEAK WITH PT'S .
--- NOTE | 2018-11-11 14:46 | MORECARE ---
CASE MANAGEMENT DISCHARGE SUMMARY PATIENT: REEMA ADAM UNIT: [id number] ADM DATE: 11/05/18 AGE: 68 : 48 SEX: M ROOM/BED: D.9438 AUTHOR: SUGAR,DOC PHYSICIAN: REFERRING PHYSICIAN: BRIANA BATISTA MD DATE OF SERVICE: 11/11/18 Discharge Plan Patient Name: REEMA ADAM Facility: [facility]:[place] : 1950 Planned Disposition: Long-Term Facility Anticipated Discharge Date: 11/11/18 Discharge Date: Expected LOS: 6 Initial Reviewer: [id number] Initial Review Date: 11/09/2018 Generated: 11/11/18 3:45 pm Comments DCP- Discharge Planning Updated by [id number]: Ranjit Page on 11/10/18 12:[address] Patient Name: REEMA ADAM Encounter No: [id number] : 1950 Primary Insurance: MEDICARE A & B Anticipated DC Date: 11-10-2018 Planned Disposition: Long-Term Facility External Planned Provider: [facility], MEDICARE REHAB BED DCP follow-up note: [facility] WILL ACCEPT PT FOR REHAB WHEN STABLE FOR DISCHARGE TO REHAB. PT WILL BE ON 6 LEON IN THE [place] [facility]. CM NOTIFIED PT IN ROOM AND PT'S SPOUSE VIA PHONE. CM NOTIFIED FRANCISCO JAVIER MIRZA. FOR DISCHARGE TO REHAB, [facility]FORMATION [facility] AT [phone]. NURSE REPORT TO BE CALLED TO [facility] AT [phone]. [facility] TO [facility] VAN TRANSPORTATION. JOSE A Babb DCP- Discharge Planning Updated by [email or web address]: Ranjit Page on 11/09/18 1:[address] Patient Name: REEMA ADAM Admission Status: ER Accout number: [id number] Admission Date: 11-05-2018 : 1950 Admission Diagnosis: Attending: LYNNE, Current LOS: 4 Anticipated DC Date: 11-10-2018 Planned Disposition: Long-Term Facility Primary Insurance: MEDICARE A & B PLANNED EXTERNAL PROVIDER: [facility], MEDICARE REHAB BED Discharge Planning Comments: CM RECEIVED ORDER FOR SKILLED NURSIING REFERRAL. CM MET WITH PT AND SPOUSE IN ROOM TO DISCUSS DISCHARGE PLANNING AND NEEDS. REEMA ADAM provided verbal consent to discuss current and ongoing needs with/in the presence of: SPOUSE, BRENDAN. PT REPORTS LIVING AT HOME DEPENDENTLY WITH HIS SPOUSE WHO ASSISTS WITH MEDICATION MANAGEMENT. PT HAS HOME AND PORTABLE OXYGEN FROM [employer] [facility]. PT HAS NO OUTSIDE SERVICES ASSISTING IN THE HOME. CM DISCUSSED AVAILABILITY OF HOME HEALTH, REHAB SERVICES AND MEDICAL EQUIPMENT. PT WILLING FOR REHAB AT [facility]; CM PROVIDED LISTING OF PROVIDERS. PT'S SPOUSE [facility]ICE [facility], CHOICE SIGNED.IMPORTANT MESSAGE FROM MEDICARE PROVIDED AND EXPLAINED. CM NOTIFIED SAMPSON OF THE [facility] OF REFERRAL, . CM FAXED REFERRAL FOR REHAB TO THE [facility], . CM WAITING ADMISSION DETERMINATION FROM THE [facility]. Tire Repairer: Ranjit Page DCPIA - Discharge Planning Initial Assessment Updated by [id number]: Ranjit Page on 11/09/18 2:54 pm * Is the patient Alert and Oriented? Yes * How many steps to enter\exit or inside your home? * PCP DR. HAWLEY * [facility] * Preadmission Environment Home with Family * ADLs Partial Dependent * Partial ADLs (Assistance needed) Medication Management * Equipment Oxygen * Other Equipment [employer] [facility]- HOME AND PORTABLE OXYGEN * List name and contact numbers for known caregivers / representatives who currently or will assist patient after discharge: BRENDAN ADAM, SPOUSE, * Verbal permission to speak to the caregivers and representatives has been obtained from the patient. N/A * Community resources currently utilized None * Please name any agencies selected above. NONE * Additional services required to return to the preadmission environment? Yes * Can the patient safely return to the preadmission environment? Yes * Has this patient been hospitalized within the prior 30 days at any hospital? No Coverage Notice Reviewer: [id number] Page Notice Issued Date-Time: 11/09/2018 12:40 Notice Type: IM Discharge Notice Notice Delivered To: Patient Relationship to Patient: Windows Application Administrator Name: Delivery Method: HAND - Hand Delivered Kim Days: Prior Verbal Notification: Recipient Understood Notice: Yes Recipient Signature: Yes Med Rec Note Co-signed by Attending: Coverage Notice Comment: Reviewer: PRINCE Page Notice Issued Date-Time: 11/09/2018 12:40 Notice Type: Patient Choice Letter Notice Delivered To: Patient Relationship to Patient: Windows Application Administrator Name: Delivery Method: HAND - Hand Delivered Kim Days: Prior Verbal Notification: Recipient Understood Notice: Yes Recipient Signature: Yes Med Rec Note Co-signed by Attending: Coverage Notice Comment: 1- SARA QUEZADA 2- [facility] DP export: 11/10/18 12:38 p Patient Name: REEMA ADAM Page [id number] at 1446 All edits/amendments must be made on the electronic document DICTATION DATE: 11/11/18 1445 BIOPHARMACEUTICAL REP: MIN 11/11/18 1445 RPT#: [id number] DC DATE: STATUS: ADM IN [facility] [address] [place] [address] END OF REPORT
--- NOTE | 2018-11-11 14:55 | MORECARE ---
CASE MANAGEMENT DISCHARGE SUMMARY PATIENT: REEMA ADAM UNIT: [id number] ADM DATE: 11/05/18 AGE: 68 : 48 SEX: M ROOM/BED: D.6975 AUTHOR: ROXANE WOOTEN PHYSICIAN: REFERRING PHYSICIAN: BRIANA BATISTA MD DATE OF SERVICE: 11/11/18 Discharge Plan Patient Name: REEMA ADAM Facility: [facility]:[place] : 1950 Planned Disposition: Long Term Facility Anticipated Discharge Date: 11/11/18 Discharge Date: Expected LOS: 6 Initial Reviewer: [id number] Initial Review Date: 11/09/2018 Generated: 11/11/18 3:55 pm Comments DCP- Discharge Planning Updated by [id number]: Ranjit Page on 11/11/18 1:[address] Patient Name: REEMA ADAM Encounter No: [id number] : 1950 Primary Insurance: MEDICARE A & B Anticipated DC Date: 11-11-2018 Planned Disposition: Long Term Facility External Planned Provider:[facility], MEDICARE REHAB BED DCP follow-up note: CM RECEIVED DISCHARGE ORDER, NOTIFIED SAMPSON OF [facility] WHO INFORMED CM THAT PT HAS BEEN ACCEPTED AND THEY WILL ACCEPT TODAY. CM NOTIFIED PT'S SPOUSE WHO INFORMED CM THAT SHE FILLED OUT ALL PAPEWORK FOR PT TODAY AND THEY ARE IN AGREEMENT WITH PLAN. CM FAXED DISCHARGE INFORMATION TO THE [facility] AT [phone]. NURSE REPORT TO BE CALLED TO THE [facility] AT [phone]. THE [facility] TO ARRANGE VAN TRANSPORTATION. Ranjit Page CASE MANAGEMENT DCP- Discharge Planning Updated by [id number]: Ranjit Page on 11/10/18 12:[address] Patient Name: REEMA ADAM Encounter No: [id number] : 1950 Primary Insurance: MEDICARE A & B Anticipated DC Date: 11-10-2018 Planned Disposition: Long Term Facility External Planned Provider: [facility], MEDICARE REHAB BED DCP follow-up note: CM RECEIVED CALL FROM AMI OF THE [facility], THEY WILL ACCEPT PT FOR REHAB WHEN STABLE FOR DISCHARGE TO REHAB. [place] [address] [place] [facility]. CM NOTIFIED PT IN ROOM AND PT'S SPOUSE VIA PHONE. CM NOTIFIED ASSOCIATE MEDIA DIRECTOR HERMES. FOR DISCHARGE TO REHAB, FAX DISCHARGE INFORMATION TO THE [facility] AT [phone]. NURSE REPORT TO BE CALLED TO THE [facility] AT [phone]. THE [facility] TO ARRANGE VAN TRANSPORTATION. Ranjit Page, CASE MANAGEMENT DCP- Discharge Planning Updated by [id number]: Ranjit Page on 11/09/18 1:[address] Patient Name: REEMA ADAM Admission Status: ER Accout number: [id number] Admission Date: 11-05-2018 : 1950 Admission Diagnosis: Attending: LYNNE Current LOS: 4 Anticipated DC Date: 11-10-2018 Planned Disposition: Long Term Facility Primary Insurance: MEDICARE A & B PLANNED EXTERNAL PROVIDER: [facility], MEDICARE REHAB BED Discharge Planning Comments: CM RECEIVED ORDER FOR SKILLED NURSIING REFERRAL. CM MET WITH PT AND SPOUSE IN ROOM TO DISCUSS DISCHARGE PLANNING AND NEEDS. REEMA ADAM provided verbal consent to discuss current and ongoing needs with/in the presence of: SPOUSE, BRENDAN. PT REPORTS LIVING AT HOME DEPENDENTLY WITH HIS SPOUSE WHO ASSISTS WITH MEDICATION MANAGEMENT. PT HAS HOME AND PORTABLE OXYGEN FROM [employer]. PT HAS NO OUTSIDE SERVICES ASSISTING IN THE HOME. CM DISCUSSED AVAILABILITY OF HOME HEALTH, REHAB SERVICES AND MEDICAL EQUIPMENT. PT WILLING FOR REHAB AT [facility] FAC[facility]; CM PROVIDED LISTING OF PROVIDERS. PT'S SPOUSE CHOICE [facility] FOR [id number], CHOICE SIGNED.IMPORTANT MESSAGE FROM MEDICARE PROVIDED AND EXPLAINED. CM NOTIFIED SAMPSON OF THE [facility] OF REFERRAL, . CM FAXED REFERRAL FOR REHAB TO THE [facility], . CM WAITING ADMISSION DETERMINATION FROM THE [facility]. Lpn Cma: Ranjit Page DCPIA - Discharge Planning Initial Assessment Updated by [id number]: Ranjit Page on 11/09/18 2:54 pm * Is the patient Alert and Oriented? Yes * How many steps to enter\exit or inside your home? * PCP DR. HAWLEY * [facility] * Preadmission Environment Home with Family * ADLs Partial Dependent * Partial ADLs (Assistance needed) Medication Management * Equipment Oxygen * Other Equipment [employer] [facility]- HOME AND PORTABLE OXYGEN * List name and contact numbers for known caregivers / representatives who currently or will assist patient after discharge: BRENDAN ADAM, SPOUSE, * Verbal permission to speak to the caregivers and representatives has been obtained from the patient. N/A * Community resources currently utilized None * Please name any agencies selected above. NONE * Additional services required to return to the preadmission environment? Yes * Can the patient safely return to the preadmission environment? Yes * Has this patient been hospitalized within the prior 30 days at any hospital? No Coverage Notice Reviewer: PRINCE Page Notice Issued Date-Time: 11/09/2018 12:40 Notice Type: IM Discharge Notice Notice Delivered To: Patient Relationship to Patient: Environment Coordinator Name: Delivery Method: HAND - Hand Delivered Kim Days: Prior Verbal Notification: Recipient Understood Notice: Yes Recipient Signature: Yes Med Rec Note Co-signed by Attending: Coverage Notice Comment: Reviewer: [id number] Page Notice Issued Date-Time: 11/09/2018 12:40 Notice Type: Patient Choice Letter Notice Delivered To: Patient Relationship to Patient: Environment Coordinator Name: Delivery Method: HAND - Hand Delivered Kim Days: Prior Verbal Notification: Recipient Understood Notice: Yes Recipient Signature: Yes Med Rec Note Co-signed by Attending: Coverage Notice Comment: 1- SARA QUEZADA 2- [facility] DP export: 11/11/18 1:46 p Patient Name: REEMA ADAM Page [id number] at 1455 All edits/amendments must be made on the electronic document DICTATION DATE: 11/11/18 145 COUNTER STITCHER: MIN 11/11/18 1450 RPT#: [id number] DC DATE: STATUS: ADM IN [facility] [address] [place] [address] END OF REPORT
--- NOTE | 2018-11-11 16:09 | NUR ---
RIGHT WRIST IV DC'D WOITH CATH INTACT. TELEMETRY DC'D.
--- NOTE | 2018-11-11 16:22 | NUR ---
REPORT CALLED TO SKYLER KIMBROUGH AT THE [facility]. DISCHARGE PAPERS EXPLAINED TO PT AND PT'S . PT'S VERBALIZED UNDERSTANDING AND SIGNED CHART COPY. ASSISTED PT WITH GETTING DRESSING. PT LEFT VIA WC BY THE [facility] STAFF AND VIA THE [facility] VAN.
--- NOTE | 2018-11-11 16:38 | MORECARE ---
CASE MANAGEMENT DISCHARGE SUMMARY PATIENT: REEMA ADAM UNIT: [id number] ADM DATE: 11/05/18 AGE: 68 : 48 SEX: M ROOM/BED: D.2704 AUTHOR: ROXANE WOOTEN PHYSICIAN: REFERRING PHYSICIAN: BRIANA BATISTA MD DATE OF SERVICE: 11/11/18 Discharge Plan Patient Name: REEMA ADAM Facility: [facility]:[place] : 1950 Planned Disposition: [facility]fp Facility Anticipated Discharge Date: 11/11/18 Discharge Date: 11/11/2018 Expected LOS: 6 Initial Reviewer: [id number] Initial Review Date: 11/09/2018 Generated: 11/11/18 5:37 pm Comments DCP- Discharge Planning Updated by [email or web address]: Ranjit Page on 11/11/18 1:[address] Patient Name: REEMA ADAM Encounter No: [id number] : 1950 Primary Insurance: MEDICARE A & B Anticipated DC Date: 11-11-2018 Planned Disposition: Mcfp Facility External Planned Provider:[facility], MEDICARE REHAB BED DCP follow-up note: CM RECEIVED DISCHARGE ORDER, NOTIFIED SAMPSON OF THE [facility] WHO INFORMED CM THAT PT HAS BEEN ACCEPTED AND THEY WILL ACCEPT TODAY. CM NOTIFIED PT'S SPOUSE WHO INFORMED CM THAT SHE FILLED OUT ALL PAPEWORK FOR PT TODAY AND THEY ARE IN AGREEMENT WITH PLAN. CM FAXED DISCHARGE INFORMATION TO THE [facility] AT [phone]. NURSE REPORT TO BE CALLED TO THE [facility] AT [phone]. THE [facility] TO ARRANGE VAN TRANSPORTATION. Ranjit Page CASE MANAGEMENT DCP- Discharge Planning Updated by [email or web address]: Ranjit Page on 11/10/18 12:[address] Patient Name: REEMA ADAM Encounter No: [id number] : 1950 Primary Insurance: MEDICARE A & B Anticipated DC Date: 11-10-2018 Planned Disposition: Mcfp Facility External Planned Provider: [facility], MEDICARE REHAB BED DCP follow-up note: CM RECEIVED CALL FROM [facility], THEY WILL ACCEPT PT FOR REHAB WHEN STABLE FOR DISCHARGE TO REHAB. PT WILL BE ON 6 LEON IN THE [facility]. CM NOTIFIED PT IN ROOM AND PT'S SPOUSE VIA PHONE. CM NOTIFIED FRANCISCO JAVIER HERMES. FOR DISCHARGE TO REHAB, FAX DISCHARGE INFORMATION TO THE [facility] AT [phone]. NURSE REPORT TO BE CALLED TO THE [facility] AT [phone]. [facility] TO ARRANGE VAN TRANSPORTATION. Ranjit Page, CASE MANAGEMENT DCP- Discharge Planning Updated by [email or web address]: Ranjit Page on 11/09/18 1:[address] Patient Name: REEMA ADAM Admission Status: ER Accout number: [id number] Admission Date: 11-05-2018 : 1950 Admission Diagnosis: Attending: LYNNE Current LOS: 4 Anticipated DC Date: 11-10-2018 Planned Disposition: Mcfp Facility Primary Insurance: MEDICARE A & B PLANNED EXTERNAL PROVIDER: [facility], MEDICARE REHAB BED Discharge Planning Comments: CM RECEIVED ORDER FOR SKILLED NURSIING REFERRAL. CM MET WITH PT AND SPOUSE IN ROOM TO DISCUSS DISCHARGE PLANNING AND NEEDS. REEMA ADAM provided verbal consent to discuss current and ongoing needs with/in the presence of: SPOUSE, BRENDAN. PT REPORTS LIVING AT HOME DEPENDENTLY WITH HIS SPOUSE WHO ASSISTS WITH MEDICATION MANAGEMENT. PT HAS HOME AND PORTABLE OXYGEN FROM [employer]. PT HAS NO OUTSIDE SERVICES ASSISTING IN THE HOME. CM DISCUSSED AVAILABILITY OF HOME HEALTH, REHAB SERVICES AND MEDICAL EQUIPMENT. PT WILLING FOR REHAB AT INTERMEDIATE FACILITY; CM PROVIDED LISTING OF PROVIDERS. PT'S SPOUSE CHOICE WAS FOR THE [facility] AND [facility], CHOICE SIGNED.IMPORTANT MESSAGE FROM MEDICARE PROVIDED AND EXPLAINED. CM NOTIFIED SAMPSON OF THE [facility] OF REFERRAL, . CM FAXED REFERRAL FOR REHAB TO THE [facility], . CM WAITING ADMISSION DETERMINATION FROM THE [facility]. [place] Service Captain: Ranjit Page DCPIA - Discharge Planning Initial Assessment Updated by [email or web address]: Ranjit Page on 11/09/18 2:54 pm * Is the patient Alert and Oriented? Yes * How many steps to enter\exit or inside your home? * PCP DR. HAWLEY * Pharmacy [facility] * Preadmission Environment Home with Family * ADLs Partial Dependent * Partial ADLs (Assistance needed) Medication Management * Equipment Oxygen * Other Equipment [facility]- HOME AND PORTABLE OXYGEN * List name and contact numbers for known caregivers / representatives who currently or will assist patient after discharge: BRENDAN ADAM, SPOUSE, * Verbal permission to speak to the caregivers and representatives has been obtained from the patient. N/A * Community resources currently utilized None * Please name any agencies selected above. NONE * Additional services required to return to the preadmission environment? Yes * Can the patient safely return to the preadmission environment? Yes * Has this patient been hospitalized within the prior 30 days at any hospital? No Coverage Notice Reviewer: [id number] Page Notice Issued Date-Time: 11/09/2018 12:40 Notice Type: IM Discharge Notice Notice Delivered To: Patient Relationship to Patient: Orthopedics Pediatric Physician Name: Delivery Method: HAND - Hand Delivered Kim Days: Prior Verbal Notification: Recipient Understood Notice: Yes Recipient Signature: Yes Med Rec Note Co-signed by Attending: Coverage Notice Comment: Reviewer: [email or web address] Page Notice Issued Date-Time: 11/09/2018 12:40 Notice Type: Patient Choice Letter Notice Delivered To: Patient Relationship to Patient: Orthopedics Pediatric Physician Name: Delivery Method: HAND - Hand Delivered Kim Days: Prior Verbal Notification: Recipient Understood Notice: Yes Recipient Signature: Yes Med Rec Note Co-signed by Attending: Coverage Notice Comment: 1- SARA QUEZADA 2- [facility] DP export: 11/11/18 1:55 p Patient Name: REEAM ADAM Page [id number] at 1638 All edits/amendments must be made on the electronic document DICTATION DATE: 11/11/187 PLASMA TABLE OPERATOR: MIN 11/11/18 1637 RPT#: [id number] DC DATE:11/11/18 STATUS: DIS IN [facility] [address] [facility] [place] [address] END OF REPORT
== END 2018-11-11 16:23 | DRG 432 ==
LOC: D.ER 11:37 → D.M2 16:56
PROVIDERS: Family Medicine; Internal Medicine Nephrology; ADMIT Family Medicine; ATTEND Family Medicine
DX: K70.30 Alcoholic cirrhosis of liver without ascites (principal); E43 Unspecified severe protein-calorie malnutrition; I21.4 Non-ST elevation (NSTEMI) myocardial infarction; J96.21 Acute and chronic respiratory failure with hypoxia; N17.9 Acute kidney failure, unspecified; D53.9 Nutritional anemia, unspecified; D69.6 Thrombocytopenia, unspecified; Z68.24 Body mass index [BMI] 24.0-24.9, adult; K21.9 Gastro-esophageal reflux disease without esophagitis; E11.9 Type 2 diabetes mellitus without complications; J43.9 Emphysema, unspecified

== ENCOUNTER 2018-11-26 05:32 | Inpatient (IN) | payer MEDICARE, OTHER ==
[~2018-11-26] VITALS: Ht 180.3 cm; Wt 65.1 kg
[2018-11-26] MEDS ORDERED: MELATONIN5 MG PO (05:44)
[2018-11-26] MEDS ORDERED: K-DUR20 MEQ PO (05:44)
[2018-11-26] MEDS ORDERED: KLONOPIN0.5 MG PO (05:45)
[2018-11-26] MEDS ORDERED: CHRONULAC30 ML PO (05:45)
[2018-11-26] MEDS ORDERED: FUROSEMIDE20 MG PO (05:46)
--- NOTE | 2018-11-26 05:49 | NUR ---
IN AND OUT CATHETER FOR URINE SPECIMEN. STERILE FIELD MAINTAINED, PT TOLERATED WELL. 15 ML SAMPLE SENT TO LAB FOR UA.
--- NOTE | 2018-11-26 05:59 | NUR ---
CONTACTED BRENDAN ADAM AT [phone] ABOUT INTUBATION, FOR PT. BRENDAN VOICED SHE DIDNOT WANT PT TO BE INTUBATED IF THE SITUATION PRESENTED. SHEILA MOJICA CONFIRMED VERBAL CONSENT TO NOT INTUBATE AND TO LET THE PT PASS WITH OUT INTERVENTION.
[2018-11-26 06:09] LABS: APTT 39.3 SECONDS (22.8-39.4); INR 2.96 (0.85-1.17)
[2018-11-26 06:37] LABS: ALBUMIN 2.2 g/dL (3.4-5.0); BILIRUBIN - TOTAL 11.59 mg/dL (0.2-1.3); CALCIUM 9.4 mg/dL (8.5-10.1); CARBON DIOXIDE 30.4 mmol/L (21.0-32.0); CREATININE - SERUM 3.9 mg/dL (0.6-1.3); MAGNESIUM - SERUM 2.5 mg/dL (1.8-2.4); POTASSIUM - SERUM 3.9 mmol/L (3.5-5.1); PROTEIN - SERUM 7.7 g/dL (6.4-8.2)
[2018-11-26 06:40] LABS: ANION GAP 17.5 mmol/L (8-16)
[2018-11-26 06:41] LABS: TROPONIN-I 0.371 ng/mL (0.000-0.060)
--- NOTE | 2018-11-26 06:55 | NUR ---
#2 BC DRAWN PER EXCEL DEVELOPER THEN ABXS INITIATED
[2018-11-26 07:00] LABS: BASOPHILS 0.1 % (0-2); EOSINOPHILS 0.1 % (0-7); HEMATOCRIT 53.6 % (42.0-54.0); HEMOGLOBIN 16.3 g/dL (13.5-17.5); IMMATURE GRANULOCYTES 0.3 % (0-5); LYMPHOCYTES 5.6 % (15-50); MCH 40.9 pg (26.0-34.0); MCHC 30.4 g/dL (31.0-37.0); MCV 134.3 fL (80.0-100.0); MONOCYTES 5.1 % (2-11); NEUTROPHILS 88.8 % (40-80); RBC 3.99 10x6/uL (4.20-6.10); RDW 21.6 % (11.5-14.5); WBC 19.3 10x3/uL (4.8-10.8)
[2018-11-26 07:04] LABS: PLATELET COUNT 59 10x3/uL (130-400)
[2018-11-26 07:10] LABS: APPEARANCE HAZY (CLEAR); BILIRUBIN NEGATIVE (NEGATIVE); COLOR DK YELLOW (YELLOW); GLUCOSE NEGATIVE (NEGATIVE); KETONE NEGATIVE (NEGATIVE); NITRITE NEGATIVE (NEGATIVE); PROTEIN NEGATIVE (NEGATIVE); SPECIFIC GRAVITY 1.015 (1.005-1.020)
[2018-11-26 07:11] LABS: BACTERIA MODERATE /hpf (NONE SEEN); MUCUS <1+ /lpf (NONE SEEN); WHITE CELLS - URINE OCC /hpf (0-5)
--- NOTE | 2018-11-26 07:30 | NUR ---
1ST ENCOUNTER WITH PT TO TRANSPORT TO ROOM #8316
[2018-11-26 11:18] VITALS: BP 132/101; BMI 19.7
[2018-11-26 13:14] VITALS: BP 100/73
--- NOTE | 2018-11-26 13:40 | NUR ---
Admitted to M2 this afternoon. It is noted that pt has numerous areas of skin breakdown. Right santos has a 2cm x 0.5cm scabbed area. Right medial ankle 4cm x 1cm x 0.4cm open area. Right dorsal foot 2cm x 4cm x 0.3cm ( states this was a blister that ruptured). Right lateral ankle 4cm x 1cm x 0.4cm (the ankle wounds appear to be wounds from toenails on left foot scratching/scraping). Left medial ankle has 10cm long area that appears scratched and bruised as does the left lateral ankle. Bilateral heels are discolored (like old bruises). Bilateral knees have old bruises and mottling. Left hip/trochanter has 15cm x 15cm nonblanchable red area. Perineal area is blanchable red. Covered open wounds with adaptic, 4x4s and secured with kerlix. Was able to pad heels by wrapping with kerlix. Then floated heels with pillows. The pt was positioned on his back with no pressure on left hip. Recommendations: -place pt on a turn/reposition q 2 hours schedule -keep heels floating - daily and as needed personal care (incontinence) using calmoseptine cream for redness - keep dressings to bilateral lower legs clean and dry - changing daily and as needed if soiled. Wound care will continue monitoring.
--- NOTE | 2018-11-26 14:05 | MORECARE ---
CASE MANAGEMENT DISCHARGE SUMMARY PATIENT: REEMA ADAM UNIT: [id number] ADM DATE: 11/26/18 AGE: 68 : 48 SEX: M ROOM/BED: D.2118 AUTHOR: ROXANE WOOTEN PHYSICIAN: REFERRING PHYSICIAN: RETA GARRETT MD DATE OF SERVICE: 11/26/18 Discharge Plan Patient Name: REEMA ADAM [facility] [facility] 1950 Planned Disposition: Anticipated Discharge Date: Discharge Date: Expected LOS: Initial Reviewer: [id number] Initial Review Date: 11/26/2018 Generated: 11/26/18 3:04 pm Patient Name: REEMA ADAM Page 46871 at 1405 All edits/amendments must be made on the electronic document DICTATION DATE: 11/26/181403 CYBER INCIDENT RESPONDER: MIN 11/26/18 1404 RPT#: [id number] MS DATE: STATUS: ADM IN [facility] [address] [place] [address] END OF REPORT
[2018-11-26 15:12] VITALS: Ht 180.3 cm; Wt 65.1 kg
[2018-11-26 17:09] VITALS: BP 132/88
--- NOTE | 2018-11-26 19:30 | NUR ---
Pt resting in bed. He is confused. Respirations shallow. Pt pulling on his IV. IV removed from left AC. The IV in the left hand secured with kerlex. He does not appear to be in distress. His is at bedside. Bed alarm on.
[2018-11-26 20:00] VITALS: BP 137/89
--- NOTE | 2018-11-26 20:47 | NUR ---
Critical lab called, pt with gram positive cocci in aerobic blood culture. Alonso FRANCISCO JAVIER Dixon on floor and notified. He gave an order for Vancomycin, pharmacy to dose.
[2018-11-27] VITALS: BP 131/86
[2018-11-27 04:00] VITALS: BP 119/81
[2018-11-27 04:49] LABS: BASOPHILS 0.1 % (0-2); EOSINOPHILS 0.1 % (0-7); HEMATOCRIT 46.6 % (42.0-54.0); HEMOGLOBIN 14.2 g/dL (13.5-17.5); IMMATURE GRANULOCYTES 0.6 % (0-5); LYMPHOCYTES 10.3 % (15-50); MCH 40.9 pg (26.0-34.0); MCHC 30.5 g/dL (31.0-37.0); MCV 134.3 fL (80.0-100.0); MONOCYTES 5.3 % (2-11); NEUTROPHILS 83.6 % (40-80); RBC 3.47 10x6/uL (4.20-6.10); RDW 20.7 % (11.5-14.5)
[2018-11-27 05:07] LABS: CALCIUM 8.5 mg/dL (8.5-10.1); CARBON DIOXIDE 31.2 mmol/L (21.0-32.0); POTASSIUM - SERUM 3.6 mmol/L (3.5-5.1)
[2018-11-27 05:25] LABS: ANION GAP 10.4 mmol/L (8-16); CREATININE - SERUM 2.5 mg/dL (0.6-1.3)
[2018-11-27 05:27] LABS: PLATELET COUNT 43 10x3/uL (130-400)
--- NOTE | 2018-11-27 05:49 | NUR ---
CRITICAL LABS CALLED TO [facility]. SODIUM OF 168, CHLORIDE 130 AND PLATELET OF 43. NO NEW ORDERS GIVEN.
--- NOTE | 2018-11-27 12:48 | NUR ---
Nutrition Follow-up: reports no PO intake. Per chart review, pt has not eaten in 3 days, has dysphagia; declines feeding tube. Possible hospice. Diet: Clear Liquid Wt: 143# Labs noted: Na 168, Glu [address] following.
[2018-11-27 13:39] VITALS: BP 152/93
--- NOTE | 2018-11-27 14:33 | NUR ---
REFUSED SCD'S FOR COMFORT MEASURES
--- NOTE | 2018-11-27 15:00 | MORECARE ---
CASE MANAGEMENT DISCHARGE SUMMARY PATIENT: REEMA ADAM UNIT: [id number] ADM DATE: 11/26/18 AGE: 68 : 48 SEX: M ROOM/BED: D.2118 AUTHOR: ROXANE WOOTEN PHYSICIAN: REFERRING PHYSICIAN: RETA GARRETT MD DATE OF SERVICE: 11/27/18 Discharge Plan Patient Name: REEMA ADAM [facility] [facility] 1950 Planned Disposition: Anticipated Discharge Date: Discharge Date: Expected LOS: Initial Reviewer: [email or web address] Initial Review Date: 11/26/2018 Generated: 11/27/18 3:59 pm External Providers External Provider: [facility] Next Contact Date: 11/27/2018 Service Request Date: Service Type: Resolution: Reviewer: Comments: Last DP export: 11/26/18 1:05 p Patient Name: REEMA ADAM Page 14420 at 1500 All edits/amendments must be made on the electronic document DICTATION DATE: 11/27/181458 RADIAGRAPH OPERATOR: MIN 11/27/181458 RPT#: [id number] DC DATE: STATUS: ADM IN [facility] [address] [place] [address] END OF REPORT
--- NOTE | 2018-11-27 15:16 | MORECARE ---
CASE MANAGEMENT DISCHARGE SUMMARY PATIENT: REEMA ADAM UNIT: [id number] ADM DATE: 11/26/18 AGE: 68 : 48 SEX: M ROOM/BED: D.2118 AUTHOR: ROXANE WOOTEN PHYSICIAN: REFERRING PHYSICIAN: RETA GARRETT MD DATE OF SERVICE: 11/27/18 Discharge Plan Patient Name: REEMA ADAM [facility] [facility] 1950 Planned Disposition: Hospice Medical Facility Anticipated Discharge Date: 11/27/18 Discharge Date: Expected LOS: 1 Initial Reviewer: [id number] Initial Review Date: 11/26/2018 Generated: 11/27/18 4:16 pm Last DP export: 11/27/18 2:00 p Patient Name: REEMA ADAM Page 53661 at 1516 All edits/amendments must be made on the electronic document DICTATION DATE: 11/27/181515 SURVEILLANCE INSPECTOR: MIN 11/27/18 151 RPT#: [id number] DC DATE: STATUS: ADM IN [facility] [address] [place] [address] END OF REPORT
--- NOTE | 2018-11-27 15:25 | MORECARE ---
CASE MANAGEMENT DISCHARGE SUMMARY PATIENT: REEMA ADAM UNIT: [id number] ADM DATE: 11/26/18 AGE: 68 : 48 SEX: M ROOM/BED: D.2119 AUTHOR: ROXANE WOOTEN PHYSICIAN: REFERRING PHYSICIAN: RETA GARRETT MD DATE OF SERVICE: 11/27/18 Discharge Plan Patient Name: REEMA ADAM [facility] [facility] 1950 Planned Disposition: Hospice Medical Facility Anticipated Discharge Date: 11/27/18 Discharge Date: Expected LOS: 1 Initial Reviewer: [email or web address] Initial Review Date: 11/26/2018 Generated: 11/27/18 4:25 pm DCPIA - Discharge Planning Initial Assessment Updated by [id number]: Ranjit Page on 11/27/18 3:22 pm * Is the patient Alert and Oriented? No * How many steps to enter\exit or inside your home? NONE * PCP DR. HAWLEY * [facility] * Preadmission Environment Penitentiary Facility * Facility Name [facility] * ADLs Partial Dependent * Partial ADLs (Assistance needed) Ambulation Bathing Dressing Medication Management Toileting Transfers * Equipment Other * Other Equipment ALL MEDICAL EQUIPMENT PROVIDED BY REHAB * List name and contact numbers for known caregivers / representatives who currently or will assist patient after discharge: BRENDAN ADAM, SPOUSE, * Verbal permission to speak to the caregivers and representatives has been obtained from the patient. N/A * Community resources currently utilized None * Please name any agencies selected above. NONE * Additional services required to return to the preadmission environment? No * Can the patient safely return to the preadmission environment? Yes * Has this patient been hospitalized within the prior 30 days at any hospital? Yes Last DP export: 11/27/18 2:16 p Patient Name: REEMA ADAM Page 99844 at 1528 All edits/amendments must be made on the electronic document DICTATION DATE: 11/27/18 1525 WEB ADMINISTRATOR: MIN 11/27/18 1525 RPT#: [id number] DC DATE: STATUS: ADM IN [facility] [address] [place] [address] END OF REPORT
--- NOTE | 2018-11-27 15:35 | MORECARE ---
CASE MANAGEMENT DISCHARGE SUMMARY PATIENT: REEMA ADAM UNIT: [id number] ADM DATE: 11/26/18 AGE: 68 : 48 SEX: M ROOM/BED: D.8222 AUTHOR: SUGARDOC PHYSICIAN: REFERRING PHYSICIAN: RETA GARRETT MD DATE OF SERVICE: 11/27/18 Discharge Plan Patient Name: REEMA ADAM [facility] : 1950 Planned Disposition: Hospice Medical Facility Anticipated Discharge Date: 11/27/18 Discharge Date: Expected LOS: 1 Initial Reviewer: [email or web address] Initial Review Date: 11/26/2018 Generated: 11/27/18 4:35 pm Comments DCP- Discharge Planning Updated by [email or web address]: Ranjit Page on 11/27/18 2:[address] Patient Name: REEMA ADAM Admission Status: ER Accout number: [id number] Admission Date: 11-26-2018 : 1950 Admission Diagnosis: Attending: RETA GARRETT Current LOS: 1 Anticipated DC Date: 11-27-2018 Planned Disposition: Hospice Medical Facility Primary Insurance: MEDICARE A & B PLANNED EXTERNAL PROVIDER: [facility] Discharge Planning Comments: CM RECEIVED ORDER FOR PRISON PLACEMENT THEN RECEIVED ORDER FOR HOSPICE. CM MET WITH PT AND SPOUSE IN ROOM TO DISCUSS DISCHARGE PLANNING AND NEEDS. PT NOT RESPONSIVE TO CM. REPORTS PT WAS AT REHAB AT THE [facility]. HIS CONDITION HAS GOTTEN WORSE AND THEY HAVE DISCUSSED HOSPICE WITH THE DOCTOR AND DO NOT WANT PT MOVED ANYWHERE ELSE AND WANT HOSPICE AT [facility]. CM EXPLAINED CONTRACT PROVIDER IS JOSE LUIS, DISCUSSED AVAILABILITY OF OTHER HOSPICE COMPANY'S AT OTHER FACLITIES LOCALLY. SPOUSE DOES WANT HOSPICE WITH [facility]PATIENT [facility]. CM PROVIDED PT'S SPOUSE WITH CM CONTACT INFORMATION. CM CALLED [facility], , SPOKE TO JESSE WHO TOOK REFERRAL AND WILL DISPATCH HOSPICE NURSE TO HOSPITAL NOW FOR EVALUATION. CM FAXED REFERRAL TO [facility] AT [phone]. CM WAITING ADMISSION DETERMINATION FROM [facility]. Meal Grinder Tender: Ranjit Page DCPIA - Discharge Planning Initial Assessment Updated by [email or web address]: Ranjit Page on 11/27/18 3:22 pm * Is the patient Alert and Oriented? No * How many steps to enter\exit or inside your home? NONE * PCP DR. HAWLEY * [facility] * Preadmission Environment Detention Facility * Facility Name [facility] * ADLs Partial Dependent * Partial ADLs (Assistance needed) Ambulation Bathing Dressing Medication Management Toileting Transfers * Equipment Other * Other Equipment ALL MEDICAL EQUIPMENT PROVIDED BY REHAB * List name and contact numbers for known caregivers / representatives who currently or will assist patient after discharge: BRENDAN ADAM, SPOUSE, * Verbal permission to speak to the caregivers and representatives has been obtained from the patient. N/A * Community resources currently utilized None * Please name any agencies selected above. NONE * Additional services required to return to the preadmission environment? No * Can the patient safely return to the preadmission environment? Yes * Has this patient been hospitalized within the prior 30 days at any hospital? Yes Last DP export: 11/27/18 2:25 p Patient Name: REEMA ADAM Page 70019 at 1535 All edits/amendments must be made on the electronic document DICTATION DATE: 11/27/18 1535 FIELD MACHINIST: MIN 11/27/18 1535 RPT#: [id number] DC DATE: STATUS: ADM IN [facility] [address] [place] [address] END OF REPORT
--- NOTE | 2018-11-27 17:25 | NUR ---
PT DISCHARGED TO HOSPICE
--- NOTE | 2018-11-30 08:17 | MORECARE ---
CASE MANAGEMENT DISCHARGE SUMMARY PATIENT: REEMA ADAM UNIT: [id number] ADM DATE: 11/26/18 AGE: 68 : 46 SEX: M ROOM/BED: D.5974 AUTHOR: ROXANE WOOTEN PHYSICIAN: REFERRING PHYSICIAN: RETA GARRETT MD DATE OF SERVICE: 11/30/18 Discharge Plan Patient Name: REEMA ADAM Facility: [facility]:[place] : 1950 Planned Disposition: Hospice Medical Facility Anticipated Discharge Date: 11/27/18 Discharge Date: 11/27/2018 Expected LOS: 1 Initial Reviewer: [email or web address] Initial Review Date: 11/26/2018 Generated: 11/30/18 9:17 am Comments DCP- Discharge Planning Updated by [email or web address]: Ranjit Page on 11/27/18 2:[address] Patient Name: REEMA ADAM Admission Status: ER Accout number: [id number] Admission Date: 11-26-2018 : 1950 Admission Diagnosis: Attending: RETA GARRETT Current LOS: 1 Anticipated DC Date: 11-27-2018 Planned Disposition: Hospice Medical Facility Primary Insurance: MEDICARE A & B PLANNED EXTERNAL PROVIDER: [facility] Discharge Planning Comments: CM RECEIVED ORDER FOR SKILLED NURSING PLACEMENT THEN RECEIVED ORDER FOR HOSPICE. CM MET WITH PT AND SPOUSE IN ROOM TO DISCUSS DISCHARGE PLANNING AND NEEDS. PT NOT RESPONSIVE TO CM. REPORTS PT WAS AT REHAB AT THE [facility]. HIS CONDITION HAS GOTTEN WORSE AND THEY HAVE DISCUSSED HOSPICE WITH THE DOCTOR AND DO NOT WANT PT MOVED ANYWHERE ELSE AND WANT HOSPICE AT [place]. CM EXPLAINED CONTRACT PROVIDER IS [facility], DISCUSSED AVAILABILITY OF OTHER HOSPICE COMPANY'S AT OTHER FACLITIES LOCALLY. SPOUSE DOES WANT HOSPICE WITH [facility] INPATIENT [facility]. CM PROVIDED PT'S SPOUSE WITH CM CONTACT INFORMATION. CM CALLED [facility], , SPOKE TO JESSE WHO TOOK REFERRAL AND WILL DISPATCH HOSPICE NURSE TO HOSPITAL NOW FOR EVALUATION. CM FAXED REFERRAL TO [facility] AT [phone]. CM WAITING ADMISSION DETERMINATION FROM [facility]. Certified Indoor Environmentalist: Ranjit Page DCPIA - Discharge Planning Initial Assessment Updated by [email or web address]: Ranjit Page on 11/27/18 3:22 pm * Is the patient Alert and Oriented? No * How many steps to enter\exit or inside your home? NONE * PCP DR. HAWLEY * [facility] * Preadmission Environment Care Home Facility * Facility Name [facility] * ADLs Partial Dependent * Partial ADLs (Assistance needed) Ambulation Bathing Dressing Medication Management Toileting Transfers * Equipment Other * Other Equipment ALL MEDICAL EQUIPMENT PROVIDED BY REHAB * List name and contact numbers for known caregivers / representatives who currently or will assist patient after discharge: BRENDAN ADAM, SPOUSE, * Verbal permission to speak to the caregivers and representatives has been obtained from the patient. N/A * Community resources currently utilized None * Please name any agencies selected above. NONE * Additional services required to return to the preadmission environment? No * Can the patient safely return to the preadmission environment? Yes * Has this patient been hospitalized within the prior 30 days at any hospital? Yes Last DP export: 11/27/18 2:35 p Patient Name: REEMA ADAM Page [id number] at [id number] All edits/amendments must be made on the electronic document DICTATION DATE: 11/30/18815 BINDER TECHNICIAN: MIN 11/30/18815 RPT#: [id number] DC DATE:11/27/18 STATUS: DIS IN [facility] [address] [place] [address] END OF REPORT
== END 2018-11-27 17:26 | disposition hospice, inpatient (51) | DRG 871 ==
LOC: D.ER 05:32 → D.M2 06:24
PROVIDERS: Emergency Medicine; Family Medicine; ADMIT Legal Medicine; ATTEND Legal Medicine
DX: A41.02 Sepsis due to Methicillin resistant Staphylococcus aureus (principal); E43 Unspecified severe protein-calorie malnutrition; J96.00 Acute respiratory failure, unspecified whether with hypoxia or hypercapnia; N17.9 Acute kidney failure, unspecified; Z68.1 Body mass index [BMI] 19.9 or less, adult; E87.0 Hyperosmolality and hypernatremia; K70.30 Alcoholic cirrhosis of liver without ascites; K72.90 Hepatic failure, unspecified without coma; E86.0 Dehydration; I48.91 Unspecified atrial fibrillation; D69.6 Thrombocytopenia, unspecified; R40.2353 Coma scale, best motor response, localizes pain, at hospital admission; R40.2133 Coma scale, eyes open, to sound, at hospital admission; R40.2243 Coma scale, best verbal response, confused conversation, at hospital admission; N18.9 Chronic kidney disease, unspecified

== ENCOUNTER 2018-11-27 17:22 | Inpatient (IN) | payer OTHER ==
[~2018-11-27] VITALS: Ht 180.3 cm; Wt 64.9 kg
[~2018-11-27 17:22] MED LIST changes: +CHRONULAC30 ML PO; +FUROSEMIDE20 MG PO; +K-DUR20 MEQ PO; +MELATONIN5 MG PO
[2018-11-27 17:56] VITALS: BP 126/85
[2018-11-27 18:02] VITALS: BMI 20.9
--- NOTE | 2018-11-27 18:26 | NUR ---
PT ADMITTED TO HOSPICE CONFUSED UNABLE TO UNDERSTAND SPEECH RESP SHALLOW SKIN COOL COLOR JAUNDICED WILL CONTINUE TO MONITOR
--- NOTE | 2018-11-27 19:10 | NUR ---
PT CARE ASSUMED. BEDSIDE SHIFT REPORT COMPLETE. PT IN BED ALERT WITH GARBLED SPEECH. NO S/S OF DISTRESS NOTED. NO DISCOMFORT EXPRESSED. CALL LIGHT IN REACH. WILL CTM.
[2018-11-27 20:00] VITALS: BP 126/85
--- NOTE | 2018-11-28 03:18 | NUR ---
PT PULLED OUT IV TO LEFT HAND. CATHETER TIP INTACT.
--- NOTE | 2018-11-28 08:34 | NUR ---
PATIENT IS RESTING ON HIS BACK IN BED AT THIS TIME. HE HAS HIS MOUTH OPEN AND EYES OPEN. IS AT BEDSIDE AND REPORTS THAT THERE HAVE NOT BEEN ANY NOTABLE CHANGES.
[2018-11-28 08:53] VITALS: BP 147/94
[2018-11-28 10:59] VITALS: Ht 180.3 cm; Wt 64.9 kg
--- NOTE | 2018-11-28 15:57 | NUR ---
PATIENT IS RESTING ON HIS BACK WITH MOUTH OPEN. HE HAS HAD A LININ CHANGE. HE HAS HAD FAMILY AT BEDSIDE AT ALL TIMES. HE JUST GOT ORAL CARE. IV IS INFUSING ORDERED.
--- NOTE | 2018-11-28 18:17 | NUR ---
NANCY DUENAS, SISTER, [phone]. CALL IF ANY CHANGES
--- NOTE | 2018-11-28 19:15 | NUR ---
RECEIVED CARE FROM DAY NURSE. LYING IN BED WITH NO DISTRESS NOTED. AT BEDSIDE. REPORTS NO NEEDS. CALL LIGHT AT SIDE. IV INFUSING PER ORDER TO PATENT LEFT FA. WINN TO GRAVITY.
[2018-11-28 20:00] VITALS: BP 102/53
--- NOTE | 2018-11-29 01:10 | NUR ---
I have reviewed this patient and I concur with the Shift Assessment completed by the Licensed Practical Nurse today this shift.
[2018-11-29 07:30] VITALS: BP 127/84
--- NOTE | 2018-11-29 07:40 | NUR ---
POSITIONED ON BACK WITH HEAD ELEVATED 30 DEGREES. EYES OPEN BUT DOES NO RESPOND TO ANY VERBAL STIMULI. STARES OFF IN ROOM AND DOES NOT FOCUS ON PERSON TALKING. IV PATENT TO LEFT FOREARM WITH MORPHINE ELECTRICAL INSTRUMENTATION TECHNICIAN AT 0.5 MG/HR. WINN PATENT AND DRAINING DARK YELLOW, CONCENTRATED URINE. ASSESSMENT COMPLETED AND WILL CONTINUE POC.
--- NOTE | 2018-11-29 13:24 | NUR ---
I have reviewed this patient and I concur with the Shift Assessment completed by the Licensed Practical Nurse today this shift.
--- NOTE | 2018-11-29 14:59 | NUR ---
WHILE CHANGING DRESSING ON RIGHT FOOT, THE BLISTER ON HIS HEEL OPENED UP AND DRAINED CLEAR YELLOW LIQUID. PT TOLERATED DRESSING CHANGES WELL. POSITIONED FOR COMFORT AND RESTING WITH EYES OPEN. FAMILY MEMBERS AT BEDSIDE. ALSO HAD SKIN TEAR ON RIGHT ELBOW THAT STARTED BLEEDING WHEN HE WAS TURNED FOR BED CHANGE. DRESSING APPLIED WITH ADAPTIC AND KERLIX.
[2018-11-29 20:00] VITALS: BP 93/68
--- NOTE | 2018-11-29 20:00 | NUR ---
RESTING IN BED RESP EVEN AND UNLABORED, O2 IN USE AT 4 L N/C MOUTH BREATHING, EYES SLIGHTLY OPEN , NON RESPONSIVE. NO APPARENT DISTRESS, MORPHINE WELD ENGINEER IN CONTINOUS USE, SEE SHIFT ASSESSMENT, WILL MONITOR
--- NOTE | 2018-11-30 01:15 | NUR ---
AT 0055 PT NOTED NO RESPIRATIONS AND ON PULSE, HOSPICE NURSE PAGED, BRENDAN NOTIFIED REQUESTED I NOTIFY ADDITIONAL FAMILY MEMBER NANCY BE NOTIFIED CALLED ALSO, CALL BACK FROM HOSPICE NURSE STATES WILL BE ABOUT AND HOUR BEFOR SHE CAN GET HERE
--- NOTE | 2018-11-30 01:40 | NUR ---
ARRIVE, AWAITING HOSPICE NURSE
--- NOTE | 2018-11-30 02:30 | NUR ---
HOSPICE NURSE PROUNCED AT 219, BRANDON NOTIFIED, HOME NOTIFIED BY HOSPICE NURSE
--- NOTE | 2018-11-30 03:45 | NUR ---
BODY RELEASED TO [facility]
--- NOTE | 2018-11-30 07:54 | MORECARE ---
CASE MANAGEMENT DISCHARGE SUMMARY PATIENT: REEMA ADAM UNIT: [id number] ADM DATE: 11/27/18 AGE: 68 : 48 SEX: M ROOM/BED: D.2101 AUTHOR: ROXANE WOOTEN PHYSICIAN: REFERRING PHYSICIAN: RETA GARRETT MD DATE OF SERVICE: 11/30/18 Discharge Plan Patient Name: REEMA ADAM [facility] [facility] 1950 Planned Disposition: Anticipated Discharge Date: 11/30/18 Discharge Date: 11/30/2018 Expected LOS: 3 Initial Reviewer: [email or web address] Initial Review Date: 11/30/2018 Generated: 11/30/18 8:53 am Patient Name: REEMA ADAM Page 99264 at 0754 All edits/amendments must be made on the electronic document DICTATION DATE: 11/30/18 0753 HYDROGEN PLANT OPERATOR: MIN 11/30/18 0753 RPT#: [id number] DC DATE:11/30/18 STATUS: DIS IN [facility] [address] [facility] [place] [address] END OF REPORT
== END 2018-11-30 04:30 | DRG 951 ==
LOC: D.M2 17:22
PROVIDERS: ADMIT Legal Medicine; ATTEND Legal Medicine
DX: Z51.5 Encounter for palliative care (principal)